=== PATIENT | male | born 1975 | race Caucasian/White ===

== ENCOUNTER 2017-02-14 02:02 | Inpatient (IN) ==
[2017-02-14] MEDS ORDERED: 0.9 % Sodium Chloride 1,000 ML IVC ONE (02:39)
[2017-02-14] MEDS ORDERED: Aspirin 81 MG TAB.CHEW PO ONE (02:43)
--- NOTE | 2017-02-14 03:01 | Emergency Department Note ---
Disposition Clinical Impression: Afib Qualifiers: Atrial fibrillation type: paroxysmal Qualified Code(s): I48.0 - Paroxysmal atrial fibrillation Chest pain Qualifiers: Chest pain type: unspecified Qualified Code(s): R07.9 - Chest pain, unspecified Disposition: Admitted As Inpatient Arrhythmia/Palpitations HPI - General Chief Complaint: ED Arrhythmia/Palpitations Stated Complaint: Afib Time Seen by Provider: 02/14/17 02:34 Source: patient Mode of arrival: ambulatory Limitations: no limitations Nursing Notes Reviewed: Yes Vital Signs Reviewed: Yes - History of Present Illness HPI Narrative: 41-year-old male with a history of A. fib presents for evaluation of chest pain and atrial fibrillation. States that he was diagnosed with A. fib in June of last year. Patient was cardioverted at [facility]. He states that his heart rate has fluctuated recently within the past 2 months but noted earlier today following exertion the patient did have lightheadedness, diaphoresis, nausea as well as chest pressure.It was retrosternal chest pressure without radiation. Lasted momentarily. Also noted an increased heart rate in the 111s. States that he is on beta blockers and took his beta john dose this morning and was scheduled one for tonight. Denies any shortness of breath. No abdominal pain. Denies having a formal cardiology evaluation. Denies history of diabetes or hypertension. Denies history of anticoagulation use. Denies history of heart attacks. - Related Data Home Medications Medication Instructions Recorded Confirmed Pregabalin [Lyrica] 150 mg PO DAILY 06/26/16 06/26/16 Previous Rx's Medication Instructions Recorded Aspirin Enteric Coated [Aspirin EC] 325 mg PO DAILY #30 tablet. 06/28/16 Diltiazem CD (24hr) [Cardizem CD] 120 mg PO DAILY #30 cap.er.24h 06/28/16 Metoprolol XL (24 HR) Succ [Toprol 50 mg PO BID #60 tab.er.24h 06/28/16 Xl] Allergies Allergy/AdvReac Type Severity Reaction Status Date / Time No Known Allergies Allergy Verified 03/16/15 14:29 All systems ED: reviewed and negative except as stated. Constitutional: Reports: as per HPI. Denies: fever Eyes: Reports: as per HPI ENT ED: Reports: as per HPI Cardiovascular: Reports: as per HPI, chest pain, palpitations. Denies: syncope Respiratory: Reports: as per HPI Gastrointestinal: Reports: as per HPI, nausea. Denies: abdominal pain, vomiting Genitourinary: Reports: as per HPI Musculoskeletal: Reports: as per HPI Integumentary: Reports: as per HPI Neurological: Reports: as per HPI Psychiatric: Reports: as per HPI Endocrine: Reports: as per HPI Hematological/Lymphatic: Reports: as per HPI Past Medical History - Past Medical History Medical history: Reports: arthritis, atrial fibrillation, GERD, hypertension Surgical history: Reports: orthopedic, other, other (tonsilectomy) Psychiatric history: Reports: no psych history - Social History Smoking Status: Never smoker Smokeless Tobacco Status: No Alcohol use: Reports: none Drug use: Reports: none Physical Exam - General Limitations: no limitations General appearance: alert, in no apparent distress - Head Head exam: atraumatic, normocephalic - Eye Eye exam: Present: normal appearance, EOMI - ENT ENT exam: normal exam, mucous membranes moist - Neck Neck exam: Present: normal inspection - Chest Chest inspection: Present: normal inspection - Respiratory Respiratory exam: Present: normal lung sounds bilaterally. Absent: respiratory distress - Cardiovascular Cardiovascular exam: Present: regular rate, irregular rhythm. Absent: systolic murmur - Abdominal Exam Abdominal exam: Present: soft, Non-Tender - Extremities Exam Extremities exam: Present: normal inspection. Absent: pedal edema - Back Exam Back exam: Present: normal inspection, full ROM. Absent: tenderness - Neurological Exam Neurological exam: Present: alert, oriented X3, CN II-XII intact - Skin Skin exam: Present: warm, dry, intact, normal color Course Course Narrative: Patient seen and examined. Patient has not had a cardiopulmonary evaluation. Patient did have chest pain earlier today. Describes it as chest pressure as well as diaphoresis and nausea and lightheadedness. Patient's heart rate appears to be moderately controlled with current medications. Given metoprolol this evening in the emergency department as well as IV fluid hydration. Patient will get a cardiopulmonary evaluation including troponin and electrolytes. Patient does not feel comfort with outpatient cardiac follow-up. He states that he feels like there something wrong. Disposition likely admission. Patient's chads Vas Score is 0. - Reevaluation(s) Reevaluation #1: Patient seen and examined. Patient's resting comfortably. Patient's lab work is unremarkable. Due to patient's concerns earlier today with this chest pressure as well as his A. fib patient the patient will be admitted for observation. Time: 03:46 Vital Signs Temperature 97.7 F 02/14/17 02:35 Pulse Rate 91 02/14/17 02:35 Respiratory Rate 18 02/14/17 02:35 Blood Pressure 155/88 02/14/17 02:35 O2 Sat by Pulse Oximetry 98 02/14/17 02:35 Temperature 97.7 F 02/14/17 02:35 Pulse Rate 91 02/14/17 02:35 Respiratory Rate 18 02/14/17 02:35 Blood Pressure 155/88 02/14/17 02:35 O2 Sat by Pulse Oximetry 98 02/14/17 02:35 Oxygen Delivery Oxygen Delivery Room Air Arrhythmia/Palpitations - MDM Narrative Medical decision making narrative: 41-year-old male process for evaluation of chest pain as well as A. fib irregular rhythm. States that he was diagnosed with A. fib back in May last year. Was cardioverted at [facility]. States that his heart rate is been somewhat irregular over the past couple months not entirely controlled on metoprolol. Since that earlier today he developed chest pain as a pressure sensation with diaphoresis lightheadedness and nausea. Denied any dyspnea. Notes that the symptoms. To improve however continued to note a regular heart rate. States he has been tracking his heart rate has not exceeded into the 120s. Patient had a cardiopulmonary evaluation with EKG, troponin and electrolytes. Patient's studies were reviewed and are unremarkable. Discussed the possibility of outpatient follow-up with discharge instructions, however the patient states that he does not feel comfortable going home stating that last time the symptoms occurred he was transferred to [facility]. Those records reviewed and shows the patient had a inpatient stay with new onset A. fib and cardiology consult. Patient had echo in May last year showed an EF of 55- 60%. Patient denies any risk factors for coronary heart disease. Patient has never had an ischemic workup for his ACS or A. fib. Less likely this is a PE. Patient has not had any pleuritic pain. Notes it was a chest pressure with concerning symptoms earlier today. Offered the patient discharge with close outpatient follow-up however the patient states that he does not feel comfortable going home and he says he feels like there is something wrong. - Lab Data Lab results reviewed: Yes I reviewed the patient's lab results. Result diagrams: 02/14/17 02:39 02/14/17 02:39 Lab Results 02/14/17 02/14/17 02/14/17 Range/Units 02:39 02:39 02:39 WBC 6.6 (4.3-11.1) K/mcL RBC 4.76 (4.19-5.50) M/mcL Hgb 13.3 (12.9-16.9) g/dL Hct 40.6 (37.5-50.1) % MCV 85.3 (83.0-100.0) fL MCH 27.9 L (28.0-33.3) pg MCHC 32.8 (31.6-35.5) g/dL RDW 13.0 (11.5-14.5) % Plt Count 198 (140-400) K/mcL MPV 11.0 (9.4-12.4) fL Immature Gran % 0.2 (0-4) % Seg Neutrophils % 59.0 % Lymphocytes % 31.6 % Monocytes % 7.3 % Eosinophils % 1.7 % Basophils % 0.2 % Neutrophils # 3.9 (1.6-8.9) K/mcL Lymphocytes # 2.1 (0.6-4.6) K/mcL Monocytes # 0.5 (0.0-1.3) K/mcL Eosinophils # 0.1 (0.0-0.6) K/mcL Basophils # 0.0 (0.0-0.2) K/mcL PT 11.8 (9.4-12.1) Seconds INR 1.1 Sodium 138 (136-145) mEq/L Potassium 4.0 (3.5-4.5) mEq/L Chloride 106 (98-109) mEq/L Carbon Dioxide 25 (19-29) mEq/L BUN 17 (8-26) mg/dL Creatinine 1.13 (0.72-1.25) mg/dL Est GFR ( Amer) > 60 (> 60) Est GFR (Non-Af Amer) > 60 (> 60) BUN/Creatinine Ratio 15 (6-26) Glucose 86 (70-99) mg/dL Calculated Osmolality 287 (280-300) Calcium 9.4 (8.6-10.8) mg/dL Magnesium 2.3 (1.6-2.6) mg/dL Troponin I (0-0.03) ng/mL 02/14/17 Range/Units 02:39 WBC (4.3-11.1) K/mcL RBC (4.19-5.50) M/mcL Hgb (12.9-16.9) g/dL Hct (37.5-50.1) % MCV (83.0-100.0) fL MCH (28.0-33.3) pg MCHC (31.6-35.5) g/dL RDW (11.5-14.5) % Plt Count (140-400) K/mcL MPV (9.4-12.4) fL Immature Gran % (0-4) % Seg Neutrophils % % Lymphocytes % % Monocytes % % Eosinophils % % Basophils % % Neutrophils # (1.6-8.9) K/mcL Lymphocytes # (0.6-4.6) K/mcL Monocytes # (0.0-1.3) K/mcL Eosinophils # (0.0-0.6) K/mcL Basophils # (0.0-0.2) K/mcL PT (9.4-12.1) Seconds INR Sodium (136-145) mEq/L Potassium (3.5-4.5) mEq/L Chloride (98-109) mEq/L Carbon Dioxide (19-29) mEq/L BUN (8-26) mg/dL Creatinine (0.72-1.25) mg/dL Est GFR ( Amer) (> 60) Est GFR (Non-Af Amer) (> 60) BUN/Creatinine Ratio (6-26) Glucose (70-99) mg/dL Calculated Osmolality (280-300) Calcium (8.6-10.8) mg/dL Magnesium (1.6-2.6) mg/dL Troponin I 0.01 (0-0.03) ng/mL - Radiology Data Radiology results reviewed: Yes I reviewed the patient's radiology results. Chest X-Ray 02/14/17 02:35 IMPRESSION: No acute abnormality D/ / Memo Souza MD / Memo Souza MD Interpreting Provider: Memo Souza MD - EKG Data EKG attestation: Yes I reviewed and interpreted this EKG. Rate: tachycardia Rhythm: A.Fib [place]/QRS: normal T wave inversions noted in: v1 Interpretation: no acute changes, unchanged when compared to prior tracing (date ) (2015) [place] Situation: Demographics Background: Presenting Complaint Assessment: Vital Signs, Course and respsone to treatment, Patient/Family Expectation Recommendation: Barrier(s) to disposition SEunice Report Given to: Dr. Evens Milian Repor Time: 03:54 Attestation Statement - Attestation Attestation: I, Jimy Ricks MD, personally evaluated this patient and discussed their management with the resident physician. I reviewed the resident's note and agree with the documented findings, medical decision making, and plan of care. 41-year-old male with history of paroxysmal atrial fibrillation presents to the emergency department with a complaint of onset of palpitations while at work about 1.5 hours prior to arrival. Patient also however complains of a lot of chest tightness and pressure and discomfort associated with the palpitations. He also became diaphoretic. He does not usually have these symptoms. No prior history of [place]. On examination patient is a well-developed well-nourished well-appearing male in no acute distress. He is alert and oriented 3. There is no cyanosis or diaphoresis. Chest is nontender to palpation. Breath sounds are clear and equal bilaterally. Heart is irregularly irregular with a very slight tachycardia. Abdomen is soft and nontender with normal bowel sounds. No pedal edema. EKG shows atrial fibrillation with RVR with a heart rate of 105. Otherwise no acute changes. Labs reviewed. Chest x-ray negative. The hospitalist, Dr. Horner, was consulted and accepted admission of the patient.
[2017-02-14 03:03] LABS: Basophils % 0.2 %; Eosinophils # 0.1 K/mcL (0.0-0.6); Eosinophils % 1.7 %; Hematocrit 40.6 % (37.5-50.1); Hemoglobin 13.3 g/dL (12.9-16.9); Immature Granulocytes % 0.2 % (0-4); Lymphocytes # 2.1 K/mcL (0.6-4.6); Lymphocytes % 31.6 %; Mean Corpuscular HGB Conc 32.8 g/dL (31.6-35.5); Mean Corpuscular Hemoglobin 27.9 pg (28.0-33.3); Mean Corpuscular Volume 85.3 fL (83.0-100.0); Monocytes # 0.5 K/mcL (0.0-1.3); Monocytes % 7.3 %; Neutrophils # 3.9 K/mcL (1.6-8.9); Platelet Count 198 K/mcL (140-400); Red Blood Count 4.76 M/mcL (4.19-5.50)
[2017-02-14 03:07] LABS: INR 1.1; Prothrombin Time 11.8 Seconds (9.4-12.1)
[2017-02-14 03:16] LABS: BUN/Creatinine Ratio 15 (6-26); Blood Urea Nitrogen 17 mg/dL (8-26); Calcium 9.4 mg/dL (8.6-10.8); Carbon Dioxide 25 mEq/L (19-29); Chloride 106 mEq/L (98-109); Glucose 86 mg/dL (70-99); Magnesium 2.3 mg/dL (1.6-2.6); Osmolality,Calculated 287 (280-300); Sodium 138 mEq/L (136-145); eGFR For African Americans > 60 (> 60); eGFR For Non-African Americans > 60 (> 60)
--- NOTE | 2017-02-14 04:35 | Internal Med History&Physical ---
<Asa Alba - Last Filed: 02/14/17 05:05> Date of Encounter: 02/14/17 Time of Encounter: 04:32 Assessment and Plan (1) Chronic a-fib Current visit: Yes Status: Chronic Patient currently in rate controlled AFib upon presentation, so willplace on telemetry and continue with home beta john dose and ASA If he does have sustained heart rates above 120 and has stable BP, will add PRN IV Metoprolol He had echo and exercise stress test performed in May when he was hospitalized with Afib RVR; results were normal so no need to repeat at this time (2) HTN (hypertension) Current visit: No Status: Chronic Blood pressures well controlled since admission Will continue home BB dose Qualifiers: Hypertension type: essential hypertension Qualified Code(s): I10 - Essential (primary) hypertension (3) DVT prophylaxis Current visit: Yes Status: Acute Heparin 5000 units BID Internal Medicine - H&P: HPI Chief complaint: Afib Admitted From: Home Plans for Post Hospital Care: Home History of present illness: Mr. Garcia is a 41 year old male who presents with palpitations and chest discomfort. Patient states the symptoms started around 1 AM while he was at work at [employer]. He states he was exerting himself during the time symptoms started. He was recently diagnosed with A. fib last May and required cardioversion and [facility] as he was unstable. He does have intermittent episodes of palpitations but states this episode is worse than usual as its more severe and persistent. He describes the chest discomfort as retrosternal and nonradiating. Also reports a headache on the left side that is new for him. He states that in May he had a stress test done which was negative and also had an echocardiogram which was also within normal limits. Currently denies any nausea, vomiting, shortness of breath, fevers, chills, diarrhea. Past Med Surg Social Fam HX - Past Medical History Medical history: arthritis, atrial fibrillation, GERD, hypertension Psychiatric history: no psych history - Past Surgical History Surgical History: orthopedic, other, other (tonsilectomy) - Social History Smoking Status: Never smoker Smokeless Tobacco Status: No Alcohol use: none Drug use: none - Family History Son Family Member Ethnicity: Non- Hx Family Cardiac Disorders: No Hx Family Respiratory Disorders: No Hx Family Cancer: No Hx Family GI Disorders: No Hx Family Endocrine Disorder: No Hx Family Neuromuscular Disorders: No Hx Family Neurologic Disorders: No Hx Family HEENT Disorders: No Hx Family Autoimmune Disorders: No Mother Family Member Ethnicity: Non- Living Status: Still Living Hx Family Cardiac Disorders: Yes (a -fib) Hx Family Respiratory Disorders: No Hx Family Cancer: Yes (skin) Hx Family GI Disorders: No Hx Family Endocrine Disorder: No Hx Family Neuromuscular Disorders: No Hx Family Neurologic Disorders: No Hx Family HEENT Disorders: No Hx Family Autoimmune Disorders: No Internal Medicine - H&P: Meds Pregabalin [Lyrica] 150 mg PO DAILY 06/26/16 [History] Aspirin Enteric Coated [Aspirin EC] 325 mg PO DAILY #30 tablet.dr 06/28/16 [Rx] Diltiazem CD (24hr) [Cardizem CD] 120 mg PO DAILY #30 cap.er.24h 06/28/16 [Rx] Metoprolol XL (24 HR) Succ [Toprol Xl] 50 mg PO BID #60 tab.er.24h 06/28/16 [Rx] Allergies No Known Allergies Allergy (Verified 03/16/15 14:29) All Systems PM: A 10-system review of systems was performed and is negative for pertinent findings except as documented above in the HPI. - Constitutional Constitutional: no chills, no fever(s), no night sweats - EENT Eyes: no change in vision, no discharge, no pain, no photophobia Ears: no ear discharge, no ear pain, no tinnitus Nose, mouth and throat: no dysphagia, no nasal discharge, no neck pain, no sore throat - Cardiovascular Cardiovascular ROS IM: chest pain, irregular heart rhythm, palpitations, no diaphoresis, no dyspnea, no lightheadedness, no syncope - Respiratory Respiratory: no cough, no dyspnea, no wheezing, no excessive phlegm production - Gastrointestinal Gastrointestinal: no abdominal pain, no diarrhea, no hematemesis, no hematochezia, no melena, no nausea, no vomiting - Musculoskeletal Musculoskeletal ROS IM: no numbness, no tingling - Integumentary Integumentary IM: no rash, no unusual bruising - Neurological Neurological ROS: headache(s), no confusion, no convulsions, no focal weakness, no numbness, no tingling, no tremor(s) - Hematologic/Lymphatic Hematologic/Lymphatic: no easy bruising - Constitutional Vitals: Temp Pulse Resp BP Pulse Ox 97.7 F 91 18 155/88 98 02/14/17 02:35 02/14/17 02:35 02/14/17 02:35 02/14/17 02:35 02/14/17 02:35 General appearance: Present: cooperative, pleasant, no acute distress, answers questions appropriately - Head Head exam: Present: atraumatic, normocephalic - Eye Eye exam: Present: PERRL, conjuntiva pink, sclera anicteric - Neck Neck exam general surgery: Present: supple, trachea midline. Absent: lymphadenopathy - Respiratory Respiratory exam: Present: CTAB. Absent: accessory muscle use, rales, rhonchi, wheezes - Cardiovascular Cardiovascular exam: Present: irregular rhythm (non-tachycardic), +S1, +S2. Absent: diastolic murmur, gallop, rubs, systolic murmur - GI/Abdominal GI/Abdominal exam: Present: normal bowel sounds, soft, no peritoneal signs. Absent: distended, tenderness - Extremities Exam Extremities exam: Present: warm, radial pulses palpable and symetrical. Absent : calf tenderness, cyanotic, pedal edema - Neurological Exam Neurological exam: Present: alert, no focal deficits. Absent: facial droop, speech deficit - Skin Skin exam: Present: dry, intact Internal Med - H&P Results - Labs CBC & Chem 7: 02/14/17 02:39 02/14/17 02:39 <Wilfred Munoz - Last Filed: 02/14/17 05:51> Date of Encounter: 02/14/17 Internal Medicine - H&P: HPI History of present illness: Mr. Garcia is a 41 year old male All Systems PM: A 10-system review of systems was performed and is negative for pertinent findings except as documented above in the HPI. - Constitutional Vitals: Temp Pulse Resp BP Pulse Ox 97.5 F L 76 16 128/74 94 02/14/17 05:10 02/14/17 05:10 02/14/17 05:10 02/14/17 05:10 02/14/17 05:10 Internal Med - H&P Results - Labs CBC & Chem 7: 02/14/17 02:39 02/14/17 02:39 - Attending Attestation I have seen and examined the patient. I have discussed about the patient with Dr. Alba. I have reviewed the orders and the note. Patient is a 41-year-old male with a past history of hypertension and chronic atrial fibrillation. Patient presents to the ED with complaints of shortness of breath and palpitations. Patient was at work when his symptoms started. He states he is experienced similar symptoms in the past when he was initially diagnosed with atrial fibrillation. Patient did have a stress test and echocardiogram done in May 2016 which were both within normal limits. Patient went to [facility] soon afterward for atrial fibrillation. He required cardioversion and was also placed on Eliquis for two months. The only medication patient now takes is metoprolol. Patient denies chest pain. No other complaints. Initial workup in the ED is negative. EKG reveals atrial fibrillation. Rate is now controlled after giving metoprolol by mouth. Patient was placed in observation in view of atrial fibrillation with RVR. We will trend troponins. Patient has been explained about his condition and plan of care. Understood and agreed. No unanswered questions. CODE STATUS full code.
[2017-02-14] MEDS ORDERED: Naloxone 0.4 MG/ML INJ IVP PRN (04:46)
[2017-02-14] MEDS ORDERED: Acetaminophen 325 MG TABLET PO PRN (04:46)
[2017-02-14] MEDS ORDERED: Ondansetron ODT 4 MG TAB.RAPDIS SL PRN (04:46)
[2017-02-14] MEDS ORDERED: *HR* Metoprolol 5 MG/5 ML VIAL IVP PRN (05:04)
[2017-02-14] MEDS: *HR* Heparin 5,000 UNIT/ML VIAL SQ SCH ×2 (05:10→18:09)
[2017-02-14] MEDS ORDERED: Aspirin 81 MG TAB.CHEW PO SCH (09:00)
[2017-02-14] MEDS ORDERED: Pregabalin 75 MG CAPSULE PO SCH (09:00)
[2017-02-14] MEDS: Metoprolol XL (24 HR) Succ 50 MG TAB.ER.24H PO SCH ×2 (09:02→20:37)
--- NOTE | 2017-02-14 12:23 | Cardiology Consult Note ---
Date of Encounter: 02/14/17 Time of Encounter: 12:19 Assessment and Plan (1) Atrial fibrillation with RVR Current Visit: No Status: Acute Presented with mild atrial fibrillation with RVR. H/O PAF. Patient appears to be very symptomatic with his afib. I discussed DYLON with DCCV verses antiarrythmic therapy. Discussed with Dr. Espino. Plan for DYLON/DCCV tomorrow and starting antiarrhythmic therapy afterwards. Stress test 05/2017 at [facility] negative. TTE 05/2017- EF 55%, RV appears mildly dilated with normal function. No significant valvular disease. Telemetry review shows avg HR 90 bpm. Occasional 2.3 second pauses noted. Not significant in the setting of afib. Continue toprol and cardizem with plan for flecainide therapy after DYLON/ DCCV. NPO after midnight. Will require anticoagulation therapy with DCCV and antiarrhythmic. Patient previously on eliquis and is agreeable to continue. Discussion w patient/family: The assessment and plan as outlined above was discussed with the patient and/or family members who expressed understanding and agreement. All questions were answered. Thank you for involving us in the care of your patient. Please call with any questions. History of Present Illness Consult date: 02/14/17 Requesting physician: Graciela Rivas Consult reason: Atrial fibrillation Chief complaint: Chest discomfort History of present illness: Mr. Garcia is a 41 year old male with a history of HTN , PAF s/p cardioversion last May, and narcolepsy who presented with sudden onset of chest discomfort starting at 2:30 am while working. He describes his discomfort as feeling like someone punching him in the chest. 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 He also admits to palpitations and dizziness with position change. He was sent directly to [facility] ED and was found to be in atrial fibrillation with mild RVR. He denies recurrent problems since cardioversion in May. His pulse always runs in the 60's. His symptoms are the same as what he felt last year when he was found to have afib. He underwent stress test last May that was normal. Past Med Surg Social Fam HX - Past Medical History Medical history: arthritis, atrial fibrillation, GERD, hypertension Psychiatric history: no psych history - Past Surgical History Surgical History: orthopedic, other, other - Social History Smoking Status: Former smoker Smokeless Tobacco Status: No Alcohol use: none Drug use: none - Family History Son Family Member Ethnicity: Non- Hx Family Cardiac Disorders: No Hx Family Respiratory Disorders: No Hx Family Cancer: No Hx Family GI Disorders: No Hx Family Endocrine Disorder: No Hx Family Neuromuscular Disorders: No Hx Family Neurologic Disorders: No Hx Family HEENT Disorders: No Hx Family Autoimmune Disorders: No Mother Family Member Ethnicity: Non- Living Status: Still Living Hx Family Cardiac Disorders: Yes (a -fib) Hx Family Respiratory Disorders: No Hx Family Cancer: Yes (skin) Hx Family GI Disorders: No Hx Family Endocrine Disorder: No Hx Family Neuromuscular Disorders: No Hx Family Neurologic Disorders: No Hx Family HEENT Disorders: No Hx Family Autoimmune Disorders: No Medications and Allergies Aspirin Enteric Coated [Aspirin EC] 325 mg PO DAILY #30 tablet.dr 06/28/16 [Rx] Metoprolol XL (24 HR) Succ [Toprol Xl] 50 mg PO BID #60 tab.er.24h 06/28/16 [Rx] Tadalafil [Cialis] 5 mg PO DAILY PRN 02/14/17 [History] Allergies No Known Allergies Allergy (Verified 03/16/15 14:29) All Systems Review: A 10-system review of systems was performed and is negative for pertinent findings except as documented above in the HPI. Physical Examination General: Conversant, No Apparent Distress HEENT: Atraumatic, Normocephaly, Mucus Membranes Moist Neck: No JVD, Normal carotid pulses Cardiac: Other (Irregularly irregular. ) Lungs: Normal Breath Sounds, No Wheeze, Rales, Rhonchi Neuro: Alert and responsive, No focal deficits noted Abdomen: Soft, Non-Tender Skin: No rashes noted on visualized skin Musculoskeletal: No Chest Wall Tenderness Extremities: No Clubbing, No Cyanosis, No Edema, Normal Pulses Results 02/14/17 02:39 02/14/17 02:39 Lab Results 02/14/17 08:14 Troponin I 0.00 - Imaging and Cardiology Echo: report reviewed - EKG Interpretation EKG results cardiology: personally reviewed (atrial fibrillation HR 107) Consult Discharge Plan - Plan Referrals: Arron Yoon Jr, MD [Primary Care Provider] -
--- NOTE | 2017-02-14 14:15 | Event Note ---
Date of Encounter: 02/14/17 Time of Encounter: 11:50 Patient is a 41y/o male with PMH of Afib, HTN who was admitted for management of Afib with RVR. He was initially rate controlled with BB however continues to have fluctuations with rate varying into low 100s. Patient seen and examined with family present at bedside. reports of having palpitations and history of cardioversion in the past. During my evaluation, patient's HR was noted to range between 95-108 in Afib with RVR. Cardiology consultation was requested and echocardiogram was obtained Cardizem 120mg PO qdaily has been added to the regimen for better BP control. cardiology evaluation appreciated. Pt to undergo DYLON in am will keep NPO after midnight closely monitor HR pt will require skilled nursing anticoagulation.
[2017-02-14] MEDS: APIXABAN 5 MG TABLET PO SCH (20:36)
[2017-02-15] MEDS: *HR* Heparin 5,000 UNIT/ML VIAL SQ SCH (06:01)
[2017-02-15 07:00] LABS: BUN/Creatinine Ratio 12 (6-26); Blood Urea Nitrogen 11 mg/dL (8-26); Calcium 8.7 mg/dL (8.6-10.8); Carbon Dioxide 25 mEq/L (19-29); Chloride 110 mEq/L (98-109); Glucose 107 mg/dL (70-99); Osmolality,Calculated 290 (280-300); Phosphorous 3.6 mg/dL (2.3-4.7); Potassium 4.1 mEq/L (3.5-4.5); Sodium 140 mEq/L (136-145); eGFR For African Americans > 60 (> 60); eGFR For Non-African Americans > 60 (> 60)
[2017-02-15 07:05] LABS: Basophils % 0.2 %; Eosinophils # 0.1 K/mcL (0.0-0.6); Eosinophils % 1.3 %; Hematocrit 43.7 % (37.5-50.1); Hemoglobin 13.9 g/dL (12.9-16.9); Lymphocytes # 1.5 K/mcL (0.6-4.6); Lymphocytes % 24.5 %; Mean Corpuscular HGB Conc 31.8 g/dL (31.6-35.5); Mean Corpuscular Hemoglobin 27.6 pg (28.0-33.3); Mean Corpuscular Volume 86.9 fL (83.0-100.0); Mean Platelet Volume 11.3 fL (9.4-12.4); Monocytes # 0.4 K/mcL (0.0-1.3); Monocytes % 6.9 %; Neutrophils # 4.2 K/mcL (1.6-8.9); Platelet Count 195 K/mcL (140-400); Red Blood Count 5.03 M/mcL (4.19-5.50); Red Cell Distribution Width 13.2 % (11.5-14.5); Segmented Neutrophils % 67.1 %
--- NOTE | 2017-02-15 08:55 | Internal Med Progress Note ---
Date of Encounter: 02/15/17 Time of Encounter: 08:51 - Assessment and plan (1) Atrial fibrillation with RVR Current Visit: No Status: Acute Assessment and plan: Recurrent symptomatic Afib with RVR Cardiology input appreciated scheduled for DYLON today (02/15/17) with initiation of Flecanide after anticoagulation started with Eliquis continue BB and Cardizem tele monitoring will monitor overnight after DYLON and likely d/c in am if cleared by cardiology (2) HTN (hypertension) Current Visit: No Status: Chronic Assessment and plan: BP within acceptable range will continue to monitor Qualifiers: Hypertension type: essential hypertension Qualified Code(s): I10 - Essential (primary) hypertension (3) DVT prophylaxis Current Visit: Yes Status: Acute Assessment and plan: anticoagulated with Eliquis - Subjective Interval history: Patient seen and examined at bedside. Resting in bed and reports of feeling better compared to previous day. Denies any chest pain, palpitations, sob at this time. No overnight issues reported. Scheduled for DYLON today (02/15/17). - Constitutional Vitals: Temp Pulse Resp BP Pulse Ox 98.3 F 94 18 108/73 98 02/15/17 07:30 02/15/17 07:30 02/15/17 07:30 02/15/17 07:30 02/15/17 07:30 General appearance: Present: cooperative, A&O X 3, pleasant, no acute distress, obese, answers questions appropriately - Head Head exam: Present: atraumatic, normocephalic - Eye Eye exam: Present: normal appearance, conjuntiva pink, sclera anicteric - Respiratory Respiratory exam: Present: CTAB. Absent: accessory muscle use, rales, rhonchi, wheezes - Cardiovascular Cardiovascular exam: Present: irregular rhythm, +S1, +S2. Absent: diastolic murmur, gallop, rubs, systolic murmur - GI/Abdominal GI/Abdominal exam: Present: normal bowel sounds, soft, no peritoneal signs. Absent: distended, tenderness - Extremities Exam Extremities exam: Present: warm, radial pulses palpable and symetrical. Absent : calf tenderness, cyanotic, pedal edema - Neurological Exam Neurological exam: Present: alert, oriented X3 - Psychiatric Psychiatric exam: Present: normal affect, normal mood Internal Medicine: Result - Labs CBC & Chem 7: 02/15/17 06:06 02/15/17 06:06 Labs: Short CBC 02/15/17 Range/Units 06:06 WBC 6.2 (4.3-11.1) K/mcL Hgb 13.9 (12.9-16.9) g/dL Hct 43.7 (37.5-50.1) % Plt Count 195 (140-400) K/mcL Neutrophils # 4.2 (1.6-8.9) K/mcL BMP 02/15/17 06:06 Sodium 140 Potassium 4.1 Chloride 110 H Carbon Dioxide 25 BUN 11 Creatinine 0.91 Glucose 107 H Calcium 8.7 Cardiac Enzymes 02/14/17 02/14/17 Range/Units 08:14 14:37 Troponin I 0.00 0.00 (0-0.03) ng/mL - ABG Interpretation ABG results: PT/INR, D-dimer PT 11.8 Seconds (9.4-12.1) 02/14/17 02:39 Consult Discharge Plan - Plan Referrals: Arron Yoon Jr, MD [Primary Care Provider] -
[2017-02-15] MEDS ORDERED: Diltiazem CD (24hr) 120 MG CAPSULE PO SCH (09:00)
[2017-02-15] MEDS ORDERED: 0.9 % Sodium Chloride 500 ML IVC ONE ×3 (09:26→10:58)
[2017-02-15] MEDS ORDERED: Tetracaine/Benzocaine/Butamben 200MG/SPRAY (100SPY/BOT) MM ONE (09:27)
[2017-02-15] MEDS: APIXABAN 5 MG TABLET PO SCH ×2 (09:59→21:11)
[2017-02-15] MEDS: *HR* Midazolam HCl 5 MG/5 ML VIAL IVP PRN ×3 (10:15→10:44)
[2017-02-15] MEDS: *HR* FentaNYL (PF) 100 MCG/2 ML VIAL IVP PRN ×3 (10:20→10:44)
--- NOTE | 2017-02-15 11:51 | Event Note ---
Date of Encounter: 02/15/17 Time of Encounter: 11:00 - Cardiology Event Note s/p successful DYLON guided DCCV to NSR--see full report for details. ECG after CV: SR 66 QRS 104 QT/QTc 376,389 ms Will start Flecainide 50 mg Q12H, first dose now. Patient will require inpatient monitoring for at least 5 doses. ECG every AM. Continue Eliquis 5 mg BID--first dose on 02/14/17. Discussed and reviewed with Dr. Espino who agrees with plan. Will continue to follow.
--- NOTE | 2017-02-15 11:57 | Electrocardiograph Report ---
[place] [address] Test Date: 2017-02-14 Pat Name: Kuldeep Garcia Department: 102 Room: 2NE29 Gender: M Business Process Lead: Rafael : 1975 Requested By: Luiz Collins Order Number: [id number] Reading MD: Luis Enrique Britt MD Measurements Intervals [place] Rate: 105 P: TN: 0 QRS: -16 QRSD: 96 T: 3 QT: 323 QTc: 384 Interpretive Statements ATRIAL FIBRILLATION WITH RAPID VENTRICULAR RESPONSE Electronically Signed On 02-15-2017 11:55:36 EDT by Luis Enrique Britt MD
[2017-02-15] MEDS: Metoprolol XL (24 HR) Succ 50 MG TAB.ER.24H PO SCH ×2 (12:31→21:11)
--- NOTE | 2017-02-15 15:46 | Electrocardiograph Report ---
[place] [address] Test Date: 2017-02-15 Pat Name: Kuldeep Garcia Department: 111 Room: 2NE29 Gender: M Dehairer: PRISCILLA : 1975 Requested By: Graciela Rivas Order Number: [id number] Reading MD: Luis Enrique Britt MD Measurements Intervals [place] Rate: 84 P: IN: 0 QRS: -13 QRSD: 108 T: 1 QT: 339 QTc: 380 Interpretive Statements ATRIAL FIBRILLATION Electronically Signed On 02-15-2017 15:44:49 EDT by Luis Enrique Britt MD
--- NOTE | 2017-02-15 15:53 | Electrocardiograph Report ---
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
[2017-02-16 06:16] LABS: Basophils % 0.3 %; Eosinophils # 0.1 K/mcL (0.0-0.6); Eosinophils % 1.8 %; Hematocrit 39.6 % (37.5-50.1); Hemoglobin 12.8 g/dL (12.9-16.9); Immature Granulocytes % 0.3 % (0-4); Lymphocytes # 1.7 K/mcL (0.6-4.6); Lymphocytes % 23.6 %; Mean Corpuscular HGB Conc 32.3 g/dL (31.6-35.5); Mean Corpuscular Hemoglobin 28.5 pg (28.0-33.3); Mean Corpuscular Volume 88.2 fL (83.0-100.0); Mean Platelet Volume 11.3 fL (9.4-12.4); Monocytes # 0.5 K/mcL (0.0-1.3); Monocytes % 6.7 %; Neutrophils # 4.9 K/mcL (1.6-8.9); Platelet Count 180 K/mcL (140-400); Red Blood Count 4.49 M/mcL (4.19-5.50); Red Cell Distribution Width 13.2 % (11.5-14.5); Segmented Neutrophils % 67.3 %
[2017-02-16 06:18] LABS: BUN/Creatinine Ratio 11 (6-26); Blood Urea Nitrogen 11 mg/dL (8-26); Calcium 8.7 mg/dL (8.6-10.8); Carbon Dioxide 26 mEq/L (19-29); Chloride 108 mEq/L (98-109); Glucose 96 mg/dL (70-99); Magnesium 1.8 mg/dL (1.6-2.6); Osmolality,Calculated 289 (280-300); Sodium 140 mEq/L (136-145); eGFR For African Americans > 60 (> 60); eGFR For Non-African Americans > 60 (> 60)
--- NOTE | 2017-02-16 08:57 | Cardiology Progress Note ---
Date of Encounter: 02/16/17 Time of Encounter: 08:30 Assessment and Plan (1) Atrial fibrillation Current Visit: Yes Status: Acute Successful DYLON guided DCCV on 02/15/17--started on Flecainide. s/p 2 doses of Flecainide (02/15/17 at 12:30 PM and 02/16/17 at 12A). ECG this AM 02/16/17: SR 82 QRS 111 ms QT/QTC 376, 389ms Kidney function and electrolytes stable. 12 hour tele: avg HR=80 SR. No PAF noted. Will require inpatient monitoring for at least 5 doses--fifth dose due on at 12 noon. May d/c home after 5th dose. Continue Toprol XL 50 m BID. Check ECG every AM. Continue eliquis for anticoagulation, Eliquis 5 mg BID started on 02/14/17. Follow-up in the EP clinic in 2-3 weeks after discharge. Recommend outpatient sleep study. Qualifiers: Atrial fibrillation type: paroxysmal Qualified Code(s): I48.0 - Paroxysmal atrial fibrillation Discussion w patient/family: The assessment and plan as outlined above was discussed with the patient and/or family members who expressed understanding and agreement. All questions were answered. Thank you for involving us in the care of your patient. Please call with any questions. The patient will be discussed and reviewed with Dr. Espino; changes to be made accordingly. Subjective Principal diagnosis: Afib Interval history: Seen and examined. s/p DYLON guided DCCV on 02/15/17. No complaints upon exam this AM. Objective General: Conversant, No Apparent Distress HEENT: Atraumatic, Normocephaly, Mucus Membranes Moist Cardiac: Reg Rate and Rhythm, Normal S1 and S2 Lungs: Normal Breath Sounds Neuro: Alert and responsive Abdomen: Soft Skin: No rashes noted on visualized skin Musculoskeletal: No Chest Wall Tenderness Extremities: No Edema, Normal Pulses Results 02/16/17 05:25 02/16/17 05:25 - Imaging and Cardiology Echo: report reviewed - EKG Interpretation EKG results cardiology: personally reviewed Consult Discharge Plan - Plan Referrals: Arron Yoon Jr, MD [Primary Care Provider] - 02/21/17 11:30 am
[2017-02-16] MEDS: APIXABAN 5 MG TABLET PO SCH ×2 (09:14→21:17)
[2017-02-16] MEDS: Metoprolol XL (24 HR) Succ 50 MG TAB.ER.24H PO SCH ×2 (09:15→21:17)
--- NOTE | 2017-02-16 10:31 | Internal Med Progress Note ---
Date of Encounter: 02/16/17 Time of Encounter: 10:28 - Assessment and plan (1) Atrial fibrillation with RVR Current Visit: No Status: Acute Assessment and plan: Recurrent symptomatic Afib with RVR Cardiology input appreciated s/p DYLON (02/15/17) started Flecainide, need to monitor for 5 doses as per cardiology. If remains stably will be discharged tomorrow afternoon anticoagulation with Eliquis continue BB and Cardizem tele monitoring (2) HTN (hypertension) Current Visit: No Status: Chronic Assessment and plan: BP within acceptable range will continue to monitor Qualifiers: Hypertension type: essential hypertension Qualified Code(s): I10 - Essential (primary) hypertension (3) DVT prophylaxis Current Visit: Yes Status: Acute Assessment and plan: anticoagulated with Eliquis early ambulation - Subjective Interval history: Patient seen and examined at bedside. Resting in bed. Denies any complains at this time. No overnight issues reported. S/p DYLON. - Constitutional Vitals: Temp Pulse Resp BP Pulse Ox 97.7 F 83 18 101/60 97 02/16/17 07:00 02/16/17 07:00 02/16/17 07:00 02/16/17 07:00 02/16/17 07:00 General appearance: Present: cooperative, A&O X 3, pleasant, no acute distress, obese, answers questions appropriately - Head Head exam: Present: atraumatic, normocephalic - Eye Eye exam: Present: conjuntiva pink, sclera anicteric - Respiratory Respiratory exam: Present: CTAB. Absent: accessory muscle use, rales, rhonchi, wheezes - Cardiovascular Cardiovascular exam: Present: RRR, +S1, +S2. Absent: diastolic murmur, gallop, rubs, systolic murmur - GI/Abdominal GI/Abdominal exam: Present: normal bowel sounds, soft, no peritoneal signs. Absent: distended, tenderness - Extremities Exam Extremities exam: Present: warm, radial pulses palpable and symetrical. Absent : calf tenderness, cyanotic, pedal edema - Neurological Exam Neurological exam: Present: alert, oriented X3 - Psychiatric Psychiatric exam: Present: normal affect, normal mood Internal Medicine: Result - Labs CBC & Chem 7: 02/16/17 05:25 02/16/17 05:25 - ABG Interpretation ABG results: PT/INR, D-dimer PT 11.8 Seconds (9.4-12.1) 02/14/17 02:39 Consult Discharge Plan - Plan Referrals: Arron Yoon Jr, MD [Primary Care Provider] - 02/21/17 11:30 am Prescriptions: Apixaban [Eliquis] 5 mg PO BID #60 tablet
--- NOTE | 2017-02-16 12:28 | Electrocardiograph Report ---
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
[2017-02-17 05:28] LABS: Basophils % 0.4 %; Eosinophils # 0.1 K/mcL (0.0-0.6); Eosinophils % 1.3 %; Hemoglobin 13.2 g/dL (12.9-16.9); Immature Granulocytes % 0.1 % (0-4); Lymphocytes # 1.7 K/mcL (0.6-4.6); Mean Corpuscular HGB Conc 32.2 g/dL (31.6-35.5); Mean Corpuscular Volume 86.9 fL (83.0-100.0); Mean Platelet Volume 10.5 fL (9.4-12.4); Monocytes # 0.5 K/mcL (0.0-1.3); Neutrophils # 5.5 K/mcL (1.6-8.9); Platelet Count 186 K/mcL (140-400); Red Blood Count 4.72 M/mcL (4.19-5.50); Red Cell Distribution Width 12.9 % (11.5-14.5); Segmented Neutrophils % 70.2 %
[2017-02-17 05:39] LABS: BUN/Creatinine Ratio 12 (6-26); Blood Urea Nitrogen 11 mg/dL (8-26); Calcium 8.9 mg/dL (8.6-10.8); Carbon Dioxide 26 mEq/L (19-29); Chloride 106 mEq/L (98-109); Glucose 101 mg/dL (70-99); Magnesium 1.7 mg/dL (1.6-2.6); Osmolality,Calculated 286 (280-300); Phosphorous 4.3 mg/dL (2.3-4.7); Sodium 138 mEq/L (136-145); eGFR For African Americans > 60 (> 60); eGFR For Non-African Americans > 60 (> 60)
[2017-02-17 07:35] VITALS: BP 119/70
[2017-02-17] MEDS: APIXABAN 5 MG TABLET PO SCH (10:11)
[2017-02-17] MEDS: Metoprolol XL (24 HR) Succ 50 MG TAB.ER.24H PO SCH (10:11)
--- NOTE | 2017-02-17 11:19 | Discharge Summary ---
Date of Encounter: 02/17/17 Time of Encounter: 11:17 - Discharge Diagnosis (1) Atrial fibrillation with RVR Priority: Primary Status: Acute (2) HTN (hypertension) Priority: Secondary Status: Chronic Qualifiers: Hypertension type: essential hypertension Qualified Code(s): I10 - Essential (primary) hypertension (3) DVT prophylaxis Priority: Secondary Status: Acute - Discharge Medications Prescriptions: Apixaban [Eliquis] 5 mg PO BID #60 tablet Flecainide 50 mg PO Q12H #60 tab Home Medications: Aspirin Enteric Coated [Aspirin EC] 325 mg PO DAILY #30 tablet.dr 06/28/16 [Rx] Metoprolol XL (24 HR) Succ [Toprol Xl] 50 mg PO BID #60 tab.er.24h 06/28/16 [Rx] Tadalafil [Cialis] 5 mg PO DAILY PRN 02/14/17 [History] Apixaban [Eliquis] 5 mg PO BID #60 tablet 02/16/17 [Rx] Flecainide 50 mg PO Q12H #60 tab 02/17/17 [Rx] Allergies/Adverse Reactions: Allergies No Known Allergies Allergy (Verified 03/16/15 14:29) Date of admission: 02/16/17 07:57 Primary care physician: Arron Yoon Jr, MD Consults: Cardiology: Dr. 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 Eliquis and Flecainide have been added to your home medications, please take these medications as prescribed. Please resume all your home medications as prescribed by your primary care physician. - Diet and Activity Activity: resume usual activities as tolerated Diet: low salt diet Hospital course: Mr. Garcia is a 41 year old male with PMH of HTN, PAF s/p cardioversion who was admitted for Afib with RVR. He was followed by cardiology and underwent DYLON with DCCV. Patient tolerated the procedure well with conversion to NSR. He was started on Flecainide and Eliquis. Patient was monitored in the hospital for 5 doses of Flecainide. He is hemodynamically stable and as per cardio he can be discharged after receiving the fifth Flecainide dose. Patient demonstrates understanding of his diagnosis and agrees with the discharge care and plan. - Time Spent with Patient Total time spent providing and/or coordinating discharge services: Less than 30 minutes - Constitutional Vitals: Temp Pulse Resp BP Pulse Ox 97.7 F 97 17 119/70 99 02/17/17 07:33 02/17/17 07:33 02/17/17 07:33 02/17/17 07:33 02/17/17 07:33 General appearance: Present: cooperative, A&O X 3, pleasant, no acute distress, obese, answers questions appropriately - Head Head exam: Present: atraumatic, normocephalic - Eye Eye exam: Present: conjuntiva pink, sclera anicteric - Respiratory Respiratory exam: Present: CTAB. Absent: accessory muscle use, rales, rhonchi, wheezes - Cardiovascular Cardiovascular exam: Present: RRR, +S1, +S2. Absent: diastolic murmur, systolic murmur - GI/Abdominal GI/Abdominal exam: Present: normal bowel sounds, soft, no peritoneal signs. Absent: distended, tenderness - Extremities Exam Extremities exam: Present: warm, radial pulses palpable and symetrical. Absent : calf tenderness, cyanotic, pedal edema - Neurological Exam Neurological exam: Present: alert, oriented X3 - Psychiatric Psychiatric exam: Present: normal affect, normal mood
--- NOTE | 2017-02-17 15:28 | Event Note ---
Date of Encounter: 02/17/17 Time of Encounter: 15:26 - Cardiology Event Note Patient was discharged prior to seeing today. ECG was ordered for an hour after 5th dose of flecanide, was not completed. Telemetry reviewed with Sinus rhythm. All intervals appeared appropriate. Follow has been set up for patient to see Dr.John Gallagher
== END 2017-02-17 14:05 | disposition home or self-care (01) | DRG 310 ==
LOC: EMEROO 02:02 → 2NENU 02:02
PROVIDERS: ADMIT Internal Medicine; ATTEND Internal Medicine

== ENCOUNTER 2017-10-06 02:09 | Observation (INO) ==
[2017-10-06 02:53] LABS: Basophils % 0.5 %; Eosinophils % 2.1 %; Hematocrit 32.5 % (37.5-50.1); Hemoglobin 9.6 g/dL (12.9-16.9); Immature Granulocytes % 0.2 % (0-4); Lymphocytes % 21.7 %; Mean Corpuscular HGB Conc 29.5 g/dL (31.6-35.5); Mean Corpuscular Hemoglobin 24.4 pg (28.0-33.3); Mean Corpuscular Volume 82.5 fL (83.0-100.0); Mean Platelet Volume 10.2 fL (9.4-12.4); Monocytes % 7.5 %; Platelet Count 279 K/mcL (140-400); Red Blood Count 3.94 M/mcL (4.19-5.50); Red Cell Distribution Width 21.1 % (11.5-14.5)
[2017-10-06 02:54] LABS: Eosinophils # 0.1 K/mcL (0.0-0.6); Lymphocytes # 1.4 K/mcL (0.6-4.6); Monocytes # 0.5 K/mcL (0.0-1.3); Neutrophils # 4.3 K/mcL (1.6-8.9)
[2017-10-06 03:15] LABS: BUN/Creatinine Ratio 11 (6-26); Blood Urea Nitrogen 11 mg/dL (6-20); Calcium 8.8 mg/dL (8.6-10.3); Carbon Dioxide 23 mEq/L (23-29); Chloride 108 mEq/L (98-107); Glucose 120 mg/dL (70-105); Osmolality,Calculated 289 (280-300); Potassium 3.8 mEq/L (3.5-5.1); Sodium 139 mEq/L (136-145); Troponin I < 0.03 ng/mL (< 0.04); eGFR For African Americans > 60 (> 60); eGFR For Non-African Americans > 60 (> 60)
[2017-10-06] MEDS ORDERED: Furosemide 40 MG/4 ML VIAL IVP ONE (03:45)
[2017-10-06] MEDS ORDERED: methylPREDNISolone 125 MG/2 ML VIAL IVP ONE (03:49)
--- NOTE | 2017-10-06 03:59 | Emergency Department Note ---
Disposition Clinical Impression: Swelling, Rash Lower extremity pain Qualifiers: Laterality: bilateral Qualified Code(s): M79.604 - Pain in right leg Disposition: Admitted As Inpatient Condition: Good Time of Disposition: 04:38 General Adult HPI - General Chief complaint: ED Extremity Problem,Nontraumatic Stated complaint: BLE swelling Time Seen by Provider: 10/06/17 02:13 Source: patient, EMS Mode of arrival: EMS Limitations: no limitations Nursing Notes Reviewed: Yes Vital Signs Reviewed: Yes - History of Present Illness HPI Narrative: 41-year-old male with significant past medical history of atrial fibrillation and chronic anemia presented to the emergency Department chief complaint of chest pain and diffuse fluid retention. Patient states he was recently changed from metoprolol Cardizem any started taking this medication on Sunday. Patient states today while he was at work he started noticed bilateral lower extremity swelling and pain and it started radiating up his legs and he got chest pain as well. Patient denies chest pain at this time. He has severe tenderness of bilateral lower extremities. Denies shortness of breath, difficulty breathing. Pain Scale: 4 - Related Data Home Medications Medication Instructions Recorded Confirmed Tadalafil [Cialis] 5 mg PO DAILY PRN 02/14/17 09/22/17 Flecainide 100 mg PO Q12H 09/22/17 09/22/17 Previous Rx's Medication Instructions Recorded Metoprolol XL (24 HR) Succ [Toprol 50 mg PO BID #60 tab.er.24h 06/28/16 Xl] GuaiFENesin ER [Mucinex] 1,200 mg PO BID #20 tbbp.12hr 09/21/17 Meclizine HCl [Verticalm] 25 mg PO TID PRN #20 tablet 09/21/17 Promethazine [Phenergan] 25 mg PO Q6HR PRN #10 tablet 09/21/17 Ferrous Sulfate 325 mg PO BID #60 tablet 09/24/17 Allergies Allergy/AdvReac Type Severity Reaction Status Date / Time No Known Allergies Allergy Verified 04/20/17 18:14 All systems ED: reviewed and negative except as stated. Cardiovascular: Reports: chest pain Musculoskeletal: Reports: arthralgia Integumentary: Reports: rash Past Medical History - Past Medical History Attestation: Yes The following information was validated with the patient. Medical history: Reports: arthritis, atrial fibrillation, fibromyalgia, hypertension, other Surgical history: Reports: arthroscopy, other Psychiatric history: Reports: no psych history - Social History Smoking Status: Never smoker Smokeless Tobacco Status: No Alcohol use: Reports: occasionally Drug use: Reports: none Physical Exam - General Limitations: no limitations General appearance: alert, in no apparent distress - Head Head exam: atraumatic, normocephalic, normal inspection - Eye Eye exam: Present: normal appearance. Absent: scleral icterus, conjunctival injection - ENT ENT exam: normal exam, normal oropharynx, mucous membranes moist - Neck Neck exam: Present: normal inspection, full ROM. Absent: tenderness, meningismus - Chest Chest inspection: Present: symmetric chest wall rise, other (Redness to the chest and back). Absent: tenderness - Respiratory Respiratory exam: Present: normal lung sounds bilaterally. Absent: respiratory distress, wheezes - Cardiovascular Cardiovascular exam: Present: regular rate, normal heart sounds - Abdominal Exam Abdominal exam: Present: soft, Non-Tender, distention (Mild distention). Absent : guarding, rebound - Extremities Exam Extremities exam: Present: full ROM, other (Diffuse lower extremity swelling. Skin tight on exam. Tenderness to palpation throughout.) - Neurological Exam Neurological exam: Present: alert, oriented X3 - Psychiatric Psychiatric exam: Present: normal affect, normal mood - Skin Skin exam: Present: warm, dry Course Course Narrative: 41-year-old male presenting to the emergency Department chief complaint of fluid retention and rash. Patient is alert and oriented 3 in the room with stable vital signs. Maintaining airway. Concerned for Cardizem reaction at this time. We will provide the patient with Benadryl, Solu-Medrol and complete basic lab work and including CBC, BMP, troponin, EKG and chest x-ray. Disposition most likely admission for acute fluid retention but pending results. Patient agrees with this plan. - Reevaluation(s) Reevaluation #1: Patient's lab work has resulted in this within normal limits and unchanged from previously. Patient saw having severe pain in the lower extremities. Benadryl moderately helped rash. Bedside echo completed did not show any obvious dysfunction. We will plan to admit the patient at this time for concern for Cardizem reaction. Patient is alert and oriented 3 in the room with stable vital signs. He agrees with this plan. I spoke with the on-call hospitalist Dr. Cardoza who agrees to accept the patient at this time Vital Signs Temperature 98.3 F 10/06/17 02:10 Pulse Rate 89 10/06/17 02:10 Respiratory Rate 18 10/06/17 02:10 Blood Pressure 154/81 10/06/17 02:10 O2 Sat by Pulse Oximetry 100 10/06/17 02:10 Temperature 97.9 F 10/06/17 04:40 Pulse Rate 82 10/06/17 04:40 Respiratory Rate 18 10/06/17 04:40 Blood Pressure 147/83 10/06/17 04:40 O2 Sat by Pulse Oximetry 99 10/06/17 04:40 Oxygen Delivery Oxygen Delivery Room Air Medical Decision Making - Lab Data Result diagrams: 10/06/17 02:20 10/06/17 02:20 Lab Results 10/06/17 10/06/17 10/06/17 Range/Units 02:20 02:20 02:20 WBC 6.3 (4.3-11.1) K/mcL RBC 3.94 L (4.19-5.50) M/mcL Hgb 9.6 L (12.9-16.9) g/dL Hct 32.5 L (37.5-50.1) % MCV 82.5 L (83.0-100.0) fL MCH 24.4 L (28.0-33.3) pg MCHC 29.5 L (31.6-35.5) g/dL RDW 21.1 H (11.5-14.5) % Plt Count 279 (140-400) K/mcL MPV 10.2 (9.4-12.4) fL Immature Gran % 0.2 (0-4) % Seg Neutrophils % 68.0 % Lymphocytes % 21.7 % Monocytes % 7.5 % Eosinophils % 2.1 % Basophils % 0.5 % Neutrophils # 4.3 (1.6-8.9) K/mcL Lymphocytes # 1.4 (0.6-4.6) K/mcL Monocytes # 0.5 (0.0-1.3) K/mcL Eosinophils # 0.1 (0.0-0.6) K/mcL Basophils # 0.0 (0.0-0.2) K/mcL Sodium 139 (136-145) mEq/L Potassium 3.8 (3.5-5.1) mEq/L Chloride 108 H (98-107) mEq/L Carbon Dioxide 23 (23-29) mEq/L BUN 11 (6-20) mg/dL Creatinine 0.98 (0.70-1.30) mg/dL Est GFR ( Amer) > 60 (> 60) Est GFR (Non-Af Amer) > 60 (> 60) BUN/Creatinine Ratio 11 (6-26) Glucose 120 H (70-105) mg/dL Calculated Osmolality 289 (280-300) Calcium 8.8 (8.6-10.3) mg/dL Troponin I < 0.03 (< 0.04) ng/mL B-Natriuretic Peptide 44 (Less than 100) pg/mL - EKG Data EKG #1 EKG attestation: Yes I reviewed and interpreted this EKG. EKG results narrative: Sinus rhythm. Left axis deviation. 85 bpm. UT interval 179, QRS 110, QTC 417. No signs of acute ST segment elevation or ischemia noted. Attestation Statement - Attestation Attestation: I examined this patient and my medical decision-making was reviewed with the Resident Physician. I agree with the documented findings, disposition and treatment plan as described except to the extent set forth below. Patient to the ED with a chief complaint of swelling and redness. Onset over the past 24 hours. Patient was recently seen and admitted and was started on Cardizem. There is little short of breath. On examination he has diffuse flushing. No mucosal involvement. He does have 3-4+ pitting edema bilateral lower extremities up to his groin. Plan. Patient's chest x-ray is clear. Troponin negative. Question if this is all a side effect from the Cardizem. He is given Lasix, Solu-Medrol, and Benadryl. He is admitted to medicine.
[2017-10-06] MEDS ORDERED: traMADol 50 MG TABLET PO PRN (04:39)
[2017-10-06] MEDS ORDERED: Acetaminophen 325 MG TABLET PO PRN (04:39)
[2017-10-06] MEDS ORDERED: Naloxone 0.4 MG/ML INJ IVP PRN (04:39)
--- NOTE | 2017-10-06 04:52 | Internal Med History&Physical ---
Date of Encounter: 10/06/17 Time of Encounter: 04:15 Assessment and Plan (1) Allergic reaction caused by a drug Current visit: Yes Status: Acute 1. I suspect this is due to Cardizem as it was started 4 days ago. 2. Stop Cardizem. 3. Schedule doses of Solu-Medrol, Benadryl, and Pepid. 4. Will check urinalyiss to assess for proteinuria. He may need 24 hour urine protein. 5. No signs of respiratory distress on exam or by history. 6. If above measures do not work, consider Rheumatology consult to assist in evaluation and management. Qualifiers: Encounter type: initial encounter Qualified Code(s): T78.40XA - Allergy, unspecified, initial encounter (2) Paroxysmal atrial fibrillation Current visit: Yes Status: Chronic 1. Continue Flecainide per home dosing. 2. Stop Cardizem due to suspected allergic reaction. 3. Resume Lopressor per prior history and use of it. 4. Monitor on telemetry and consult cardiology if necessary. (3) DVT prophylaxis Current visit: No Status: Acute 1. Heparin SQ. Internal Medicine - H&P: HPI Chief complaint: BLE edema; ankle pains Admitted From: Emergency Dept Plans for Post Hospital Care: Home History of present illness: Mr. Garcia is a 41 year old male who presents to the ER tonight with complaints of bilateral lower extremity edema and pains in his ankles and knees. Symptoms started over the last 24-48 hours and have progressively worsened. He also has diffuse erythroderma throughout his torso. Prior to the symptom onset, he started a new medication -- Cardizem. Cardizem replaced metoprolol. He denies any difficulty breathing, lip or tongue swelling, or any stridor. Workup in the ER was negative except for anemia. His anemia is better than it was 2 weeks ago when he was admitted for GI bleed. He has had no further GI bleeding. ER gave him a dose of Lasix, Solu-Medrol, and Benadryl. He did urinate somewhat after Lasix. He has no history of heart failure. He had a recent ECHO in January 2017, which showed normal left ventricular ejection fraction. Upon my assessment of the patient, he has no signs or symptoms of respiratory distress. He is breathing easily and without difficulty. His biggest complaint is swelling of his legs and pain in his ankles and knees. He states his skin is tight in his legs and his wrists and arms and up to his abdomen. He denies any difficulty urinating. He has never had any kidney problems. Urinalysis was not yet obtained in the ER. He denies any history of proteinuria /nephrotic syndrome. Past Med Surg Social Fam HX - Past Medical History Attestation: Yes The following information was validated with the patient. Source: patient, old records reviewed Medical history: arthritis, atrial fibrillation, fibromyalgia, hypertension Psychiatric history: no psych history - Past Surgical History Surgical History: arthroscopy - Social History Smoking Status: Never smoker Smokeless Tobacco Status: No Alcohol use: occasionally Drug use: none Occupational status: employed Current living situation: Home, With Family Activity Level: Independent ambulation Recent Out of Country Travel Within the Last 8 Weeks: No - Family History Son Family Member Ethnicity: Non- Hx Family Cardiac Disorders: No Hx Family Respiratory Disorders: No Hx Family Cancer: No Hx Family GI Disorders: No Hx Family Endocrine Disorder: No Hx Family Neuromuscular Disorders: No Hx Family Neurologic Disorders: No Hx Family HEENT Disorders: No Hx Family Autoimmune Disorders: No Mother Family Member Ethnicity: Non- Living Status: Still Living Hx Family Cardiac Disorders: Yes (A Fib) Hx Family Respiratory Disorders: No Hx Family Cancer: Yes (skin) Hx Family GI Disorders: No Hx Family Endocrine Disorder: No Hx Family Neuromuscular Disorders: No Hx Family Neurologic Disorders: No Hx Family HEENT Disorders: No Hx Family Autoimmune Disorders: No Internal Medicine - H&P: Meds Metoprolol XL (24 HR) Succ [Toprol Xl] 50 mg PO BID #60 tab.er.24h 06/28/16 [Rx] Tadalafil [Cialis] 5 mg PO DAILY PRN 02/14/17 [History] GuaiFENesin ER [Mucinex] 1,200 mg PO BID #20 tbbp.12hr 09/21/17 [Rx] Meclizine HCl [Verticalm] 25 mg PO TID PRN #20 tablet 09/21/17 [Rx] Promethazine [Phenergan] 25 mg PO Q6HR PRN #10 tablet 09/21/17 [Rx] Flecainide 100 mg PO Q12H 09/22/17 [History] Ferrous Sulfate 325 mg PO BID #60 tablet 09/24/17 [Rx] 3 Allergy/AdvReac Type Severity Reaction Status Date / Time No Known Allergies Allergy Verified 04/20/17 18:14 - Constitutional Constitutional: no chills, no fever(s), no night sweats - EENT Eyes: no blurry vision, no change in vision Ears: no ear pain, no tinnitus Nose, mouth and throat: no change in voice, no dry mouth, no facial pain, no hoarseness, no lip swelling, no nasal congestion, no nasal discharge, no sinus pressure, no sore throat, no throat swelling, no tongue swelling - Cardiovascular Cardiovascular ROS IM: edema (throughout, including torso/abdomen), no chest pain, no dyspnea, no dyspnea on exertion, no orthopnea, no palpitations, no paroxysmal nocturnal dyspnea, no syncope - Respiratory Respiratory: no cough, no dyspnea, no hemoptysis, no wheezing, no chest congestion, no excessive phlegm production, no change in phlegm color - Gastrointestinal Gastrointestinal: no abdominal pain, no diarrhea, no hematemesis, no hematochezia, no melena, no nausea, no vomiting - Genitourinary Genitourinary ROS male: no dysuria, no flank pain, no hematuria - Musculoskeletal Musculoskeletal ROS IM: arthralgias (ankles and knees), no back pain, no muscle cramps, no muscle weakness - Integumentary Integumentary IM: erythema, no rash, no jaundice - Neurological Neurological ROS: no disequilibrium, no dizziness, no focal weakness, no frequent falls, no headache(s) - Psychiatric Psychiatric: no anxiety, no depression - Endocrine Endocrine IM: no polydipsia, no polyuria - Hematologic/Lymphatic Hematologic/Lymphatic: no easy bruising, no lymphadenopathy - Allergic/Immunologic Allergic/Immunologic: no wheezing, no GI upset with certain foods - Constitutional Vitals: Temp Pulse Resp BP Pulse Ox 97.9 F 82 18 147/83 99 10/06/17 04:40 10/06/17 04:40 10/06/17 04:40 10/06/17 04:40 10/06/17 04:40 General appearance: Present: cooperative, mild distress, A&O X 3, pleasant, answers questions appropriately - Head Head exam: Present: atraumatic, normal inspection - Eye Eye exam: Present: EOMI, normal appearance, PERRL. Absent: scleral icterus Pupils: Present: normal accommodation - ENT ENT exam: Present: mucous membranes moist, normal exam, normal oropharynx Additional comments: no lip or tongue swelling; no angioedema of soft tissues - Neck Neck exam general surgery: Present: full ROM, supple. Absent: lymphadenopathy, tenderness, nuchal rigidity, thyromegaly - Respiratory Respiratory exam: Present: CTAB. Absent: chest wall tenderness, prolonged expiratory phase, rales, respiratory distress, rhonchi, stridor, wheezes - Cardiovascular Cardiovascular exam: Present: RRR, +S1, +S2. Absent: diastolic murmur, distant heart sounds, systolic murmur - GI/Abdominal GI/Abdominal exam: Present: distended, normal bowel sounds. Absent: guarding, mass, rebound, tenderness Additional comments: edema up to abdomen - Extremities Exam Extremities exam: Present: joint swelling (ankles -- painful), normal capillary refill, pedal edema (3+), warm, radial pulses palpable and symmetrical. Absent : calf tenderness - Back Exam Back exam: Absent: CVA tenderness (L), CVA tenderness (R) - Neurological Exam Neurological exam: Present: alert, oriented X3, no focal deficits, strengths equal and symetr throughout - Psychiatric Psychiatric exam: Present: normal affect, normal mood - Skin Skin exam: Present: dry, erythema (diffuse -- mostly on back, abdomen, and chest ), warm. Absent: urticaria, vesicles Internal Med - H&P Results - Labs CBC & Chem 7: 10/06/17 02:20 10/06/17 02:20 - EKG Data -: EKG Interpreted by Myself - EKG Data Prior EKG available for review: no EKG comments: 10/06/17 05:25 NSR; no acute ST-T changes - Diagnostic Studies Chest x-ray Status: image reviewed by me
[2017-10-06] MEDS: Famotidine 20 MG/2 ML VIAL IVP SCH ×2 (05:16→17:49)
[2017-10-06] MEDS: *HR* Heparin 5,000 UNIT/ML VIAL SQ SCH ×2 (05:16→17:49)
[2017-10-06 05:44] LABS: Thyroid Stimulating Hormone 2.556 mcIU/mL (0.340-5.600)
[2017-10-06 05:58] LABS: Bilirubin,Urine Negative (Negative); Blood,Urine Negative (Negative); Clarity,Urine Clear (Clear); Color,Urine Yellow (Yellow); Glucose,Urine (UA) Normal (Normal); Ketones,Urine Negative (Negative); Leukocyte Esterase,Urine Negative (Negative); Nitrite,Urine Negative (Negative); PH,Urine 6.5 pH Units (5.0-8.0); Protein,Urine Negative (Neg-Trace); Specific Gravity,Urine 1.014 (1.010-1.025); Urobilinogen,Urine Normal (Normal)
[2017-10-06] MEDS: Metoprolol XL (24 HR) Succ 50 MG TAB.ER.24H PO SCH ×2 (09:08→19:54)
[2017-10-06] MEDS: methylPREDNISolone 125 MG/2 ML VIAL IVP SCH ×2 (11:32→19:54)
--- NOTE | 2017-10-06 17:20 | Event Note ---
Date of Encounter: 10/06/17 Time of Encounter: 14:30 (1) Allergic reaction caused by a drug presented with lower extremity swelling and pain. Possibly secondary to diltiazem which was started 4 days prior to arrival (patient reported he was unable to tolerate side effects of metoprolol so PCP switched to diltiazem ). Sx 's significantly improved with Solu-Medrol, Benadryl, and Pepid. Diltiazem stopped and BB restarted. No resp distress on exam. (2) Paroxysmal atrial fibrillation Patient reports isolated episode of A. fib in 2017. Status post DCCV at that time. Was anticoagulated for 30 days with Eliquis. Denies A. fib recurrence. Telemetry reviews possible A. fib paint tinter of 10/06/17. Rate controlled. Continue BB. [id number] score 1. Hold on anticoagulation. Continue Flecainide. Cardiology consult. Check echo (3) DVT prophylaxis heparin
[2017-10-07] MEDS: *HR* Heparin 5,000 UNIT/ML VIAL SQ SCH (05:02)
[2017-10-07] MEDS: methylPREDNISolone 125 MG/2 ML VIAL IVP SCH ×2 (05:03→12:37)
[2017-10-07] MEDS: Famotidine 20 MG/2 ML VIAL IVP SCH (05:03)
[2017-10-07 07:49] LABS: INR 1.1; Prothrombin Time 11.8 Seconds (9.4-12.1)
[2017-10-07 07:52] LABS: Activated Partial Thrombo Time 25.5 Seconds (26.0-36.0)
[2017-10-07 08:33] LABS: Basophils % 0.1 %; Hematocrit 32.5 % (37.5-50.1); Hemoglobin 9.6 g/dL (12.9-16.9); Immature Granulocytes % 0.5 % (0-4); Lymphocytes # 0.5 K/mcL (0.6-4.6); Lymphocytes % 3.8 %; Mean Corpuscular HGB Conc 29.5 g/dL (31.6-35.5); Mean Corpuscular Hemoglobin 24.6 pg (28.0-33.3); Mean Corpuscular Volume 83.3 fL (83.0-100.0); Mean Platelet Volume 10.7 fL (9.4-12.4); Monocytes # 0.2 K/mcL (0.0-1.3); Monocytes % 1.7 %; Neutrophils # 12.2 K/mcL (1.6-8.9); Platelet Count 280 K/mcL (140-400); Red Cell Distribution Width 21.6 % (11.5-14.5); Segmented Neutrophils % 93.9 %
[2017-10-07] MEDS: Metoprolol XL (24 HR) Succ 50 MG TAB.ER.24H PO SCH (08:59)
[2017-10-07 09:36] LABS: Thyroid Stimulating Hormone 0.335 mcIU/mL (0.340-5.600)
[2017-10-07 09:42] LABS: Alanine Aminotransferase 15 Units/L (7-52); Albumin 4.1 g/dL (3.5-5.7); Albumin/Globulin Ratio 1.8 (1.1-2.2); Alkaline Phosphatase 69 Units/L (34-104); Aspartate Amino Transferase 11 Units/L (13-39); BUN/Creatinine Ratio 16 (6-26); Bilirubin,Total 0.4 mg/dL (0.3-1.0); Blood Urea Nitrogen 14 mg/dL (6-20); Calcium 9.2 mg/dL (8.6-10.3); Carbon Dioxide 20 mEq/L (23-29); Chloride 108 mEq/L (98-107); Globulin 2.3 g/dL (2.4-3.5); Glucose 166 mg/dL (70-105); Osmolality,Calculated 290 (280-300); Sodium 138 mEq/L (136-145); Total Protein 6.4 g/dL (6.4-8.9); eGFR For African Americans > 60 (> 60); eGFR For Non-African Americans > 60 (> 60)
--- NOTE | 2017-10-07 10:57 | Electrophysiology Consult Note ---
Date of Encounter: 10/07/17 Time of Encounter: 10:54 Assessment and Plan (1) Atrial fibrillation Current Visit: No Status: Acute Side effect from cardizem, would D/C. Resume metorolol. No evidence of AF recurrance at this time. Qualifiers: Atrial fibrillation type: paroxysmal Qualified Code(s): I48.0 - Paroxysmal atrial fibrillation Discussion w patient/family: The assessment and plan as outlined above was discussed with the patient and/or family members who expressed understanding and agreement. All questions were answered. Thank you for involving us in the care of your patient. Please call with any questions. History of Present Illness Consult date: 10/07/17 Requesting physician: Danni Loco Consult reason: PAF Chief complaint: Swelling History of present illness: Mr. Garcia is a 41 year old male with a history of PAF. Recently he was started on cardizem as an outpt. He developed severe swelling after several days of the medicine. He stopped this and resumed his previous metoprolol and symptoms resolved. he has had some palitations but no definate AF. Past Med Surg Social Fam HX - Past Medical History Medical history: arthritis, atrial fibrillation, fibromyalgia, hypertension Psychiatric history: no psych history - Past Surgical History Surgical History: arthroscopy - Social History Smoking Status: Never smoker Smokeless Tobacco Status: No Alcohol use: occasionally Drug use: none - Family History Son Family Member Ethnicity: Non- Hx Family Cardiac Disorders: No Hx Family Respiratory Disorders: No Hx Family Cancer: No Hx Family GI Disorders: No Hx Family Endocrine Disorder: No Hx Family Neuromuscular Disorders: No Hx Family Neurologic Disorders: No Hx Family HEENT Disorders: No Hx Family Autoimmune Disorders: No Mother Family Member Ethnicity: Non- Living Status: Still Living Hx Family Cardiac Disorders: Yes (A Fib) Hx Family Respiratory Disorders: No Hx Family Cancer: Yes (skin) Hx Family GI Disorders: No Hx Family Endocrine Disorder: No Hx Family Neuromuscular Disorders: No Hx Family Neurologic Disorders: No Hx Family HEENT Disorders: No Hx Family Autoimmune Disorders: No Medications and Allergies Tadalafil [Cialis] 5 mg PO DAILY PRN 02/14/17 [History] Flecainide 100 mg PO BID 09/22/17 [History] Ferrous Sulfate 325 mg PO BID #60 tablet 09/24/17 [Rx] Fexofenadine HCl [Allergy Relief] 180 mg PO DAILY PRN 10/06/17 [History] Metoprolol XL (24 HR) Succ [Toprol XL] 50 mg PO BID 10/06/17 [History] Mv-Mn/FA/Vit K/Lycop/Lut/Coq10 [Daily Multivitamin Capsule] 1 tab PO DAILY 10/06 [History] Omeprazole [PriLOSEC] 20 mg PO DAILY 10/06/17 [History] 3 Allergy/AdvReac Type Severity Reaction Status Date / Time diltiazem [From Cardizem] Allergy See Verified 10/06/17 12:14 Comments All Systems Review: The remainder of the systems were reviewed and are negative Physical Examination Vital Signs, Last 4 Hours Temp Pulse Resp BP Pulse Ox 10/07/17 07:21 98.7 F 81 14 121/70 98 General: Conversant, No Apparent Distress HEENT: Atraumatic, Normocephaly, Mucus Membranes Moist Neck: No JVD, Normal carotid pulses Cardiac: Reg Rate and Rhythm, Normal S1 and S2, No Murmur Lungs: Normal Breath Sounds, No Wheeze, Rales, Rhonchi Neuro: Alert and responsive, No focal deficits noted Abdomen: Soft, Non-Tender Skin: No rashes noted on visualized skin Musculoskeletal: No Chest Wall Tenderness Extremities: No Clubbing, No Cyanosis, No Edema, Normal Pulses Results 10/07/17 06:12 10/07/17 06:12 Lab Results 10/07/17 10/07/17 10/07/17 06:12 06:12 06:12 WBC 13.0 H D Hgb 9.6 L Hct 32.5 L Plt Count 280 INR 1.1 APTT 25.5 L Sodium 138 Potassium 4.0 Chloride 108 H Carbon Dioxide 20 L BUN 14 Creatinine 0.89 Glucose 166 H Calcium 9.2 Magnesium 2.0 Total Bilirubin 0.4 AST 11 L ALT 15 Alkaline Phosphatase 69 TSH 10/07/17 06:12 WBC Hgb Hct Plt Count INR APTT Sodium Potassium Chloride Carbon Dioxide BUN Creatinine Glucose Calcium Magnesium Total Bilirubin AST ALT Alkaline Phosphatase TSH 0.335 L - EKG Interpretation EKG results cardiology: normal ECG (NSR) Consult Discharge Plan - Plan Referrals: Arron Yoon Jr, MD [Primary Care Provider] -
[2017-10-07 11:50] VITALS: BP 123/71
--- NOTE | 2017-10-07 14:25 | Discharge Summary ---
Orders not resulted at time of discharge: Pending orders 10/06/17 06:00 ECG 12 lead ECG [ECG] AM 0600 Date of Encounter: 10/07/17 Time of Encounter: 14:27 - Discharge Diagnosis (1) Allergic reaction caused by a drug Priority: Primary Status: Acute Comments: suspected; presented with lower extremity swelling and pain. Diltiazem started 4 days prior to arrival (patient reported he was unable to tolerate side effects of metoprolol so PCP switched to diltiazem ). Sx's significantly improved with Solu-Medrol, Benadryl, and Pepid. All sx's resolved at time of discharge. Diltiazem stopped and BB restarted. Follow-up with PCP Qualifiers: Encounter type: initial encounter Qualified Code(s): T78.40XA - Allergy, unspecified, initial encounter (2) Paroxysmal atrial fibrillation Priority: Primary Status: Chronic Comments: reported isolated episode of A. fib in 2017. Status post DCCV at that time. Was anticoagulated for 30 days with Eliquis. Denied A. fib recurrence. Evaluated by Cardiology who noted no evidence of AF recurrance, no need for anticoagulation. Continue home flecainide, BB. Follow-up with PCP and/or cardiology. (3) HTN (hypertension) Priority: Secondary Status: Chronic Comments: per hx. BP controlled. Cont home BP medication Qualifiers: Hypertension type: essential hypertension Qualified Code(s): I10 - Essential (primary) hypertension (4) Iron deficiency anemia Priority: Secondary Status: Chronic Comments: per hx. Hgb 9.6; appeared stable and at baseline. No active bleeding. Continue home iron supplements. Qualifiers: Iron deficiency anemia type: inadequate dietary iron intake Qualified Code( s): D50.8 - Other iron deficiency anemias Hospital course: Mr. Garcia is a 41 year old male with PMH PAF and hypertension who presented to [facility] 10/06[facility]2017 with complaints of lower extremity swelling and pain. He was placed in observation status for further workup and treatment. He was found have suspected drug reaction to diltiazem. He apparently was having adverse reactions to metoprolol and PCP started him on diltiazem 4 days prior to arrival. No respiratory distress. All symptoms resolved with IV steroids, H2, PPI. Diltiazem was stopped in home BB was resumed. He was evaluated by cardiology who did not appreciate A. fib recurrence and anticoagulation is not recommended. He was discharged home in stable condition with outpatient follow-up. Please see assessment and plan further details. Discharge discussed with: patient - Time Spent with Patient Total time spent providing and/or coordinating discharge services: - Discharge Medications Home Medications: Tadalafil [Cialis] 5 mg PO DAILY PRN 02/14/17 [History] Flecainide 100 mg PO BID 09/22/17 [History] Ferrous Sulfate 325 mg PO BID #60 tablet 09/24/17 [Rx] Fexofenadine HCl [Allergy Relief] 180 mg PO DAILY PRN 10/06/17 [History] Mv-Mn/FA/Vit K/Lycop/Lut/Coq10 [Daily Multivitamin Capsule] 1 tab PO DAILY 10/06 [History] Omeprazole [PriLOSEC] 20 mg PO DAILY 10/06/17 [History] Metoprolol XL (24 HR) Succ [Toprol Xl] 50 mg PO BID tab.er.24h 10/07/17 [Rx] Allergies/Adverse Reactions: 3 Allergy/AdvReac Type Severity Reaction Status Date / Time diltiazem [From Cardizem] Allergy See Verified 10/06/17 12:14 Comments Date of admission: 10/06/17 04:07 Primary care physician: Arron Yoon Jr, MD Consults: 10/06/17 17:21 Consult to Cardiology [CONS] Routine Comment: Consulting Provider: Card[facility] [place] Reason for Consult: Hx PAF, s/p remote DVVC now with recurrent A. fib. Not on anticoagulation. Rate controlled. Call Completed: No Discharging clinician: Danni Loco Anticipated date of discharge: 10/07/17 - Constitutional Vitals: Temp Pulse Resp BP Pulse Ox 98.4 F 92 16 123/71 97 10/07/17 11:48 10/07/17 11:48 10/07/17 11:48 10/07/17 11:48 10/07/17 11:48 General appearance: Present: cooperative, A&O X 3, pleasant, answers questions appropriately - Head Head exam: Present: atraumatic, normocephalic - Eye Eye exam: Present: PERRL, conjuntiva pink, sclera anicteric Pupils: Present: PERRL - Neck Neck exam general surgery: Present: supple, trachea midline. Absent: lymphadenopathy - Respiratory Respiratory exam: Present: CTAB. Absent: accessory muscle use, rales, rhonchi, wheezes - Cardiovascular Cardiovascular exam: Present: RRR, +S1, +S2. Absent: diastolic murmur, gallop, rubs, systolic murmur - GI/Abdominal GI/Abdominal exam: Present: normal bowel sounds, soft, no peritoneal signs. Absent: distended, tenderness - Extremities Exam Extremities exam: Present: warm, radial pulses palpable and symmetrical. Absent : calf tenderness, cyanotic, pedal edema - Neurological Exam Neurological exam: Present: CN II-XII intact, oriented X3, no focal deficits. Absent: pronater drift, facial droop, speech deficit - Skin Skin exam: Present: dry, intact - Patient Status Disposition: Home, Self-Care Condition: Good Functional capacity at discharge: independent ambulation Overall status at discharge: patient is back to baseline - Discharge Instructions Instructions: Metoprolol (By mouth) Follow Up With: Arron Yoon Jr, MD [Primary Care Provider] - - Diet and Activity Activity: increase activity as tolerated Diet: advance to your usual diet
--- NOTE | 2017-10-08 19:18 | Electrocardiograph Report ---
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
== END 2017-10-07 15:22 | disposition home or self-care (01) ==
LOC: 3BNU 02:09 → EMEROO 02:09 → 3BNU 04:35
PROVIDERS: ADMIT Internal Medicine; ATTEND Registered Nurse

== ENCOUNTER 2018-05-24 18:57 | Observation (INO) ==
[2018-05-24] MEDS ORDERED: Aspirin 325 MG TABLET PO ONE (19:18)
[2018-05-24] MEDS ORDERED: *HR* Metoprolol 5 MG/5 ML VIAL IVP ONE (19:22)
[2018-05-24 19:33] LABS: Basophils % 0.4 %; Eosinophils # 0.2 K/mcL (0.0-0.6); Hematocrit 36.2 % (37.5-50.1); Hemoglobin 11.7 g/dL (12.9-16.9); Immature Granulocytes % 0.2 % (0-4); Lymphocytes # 1.5 K/mcL (0.6-4.6); Mean Corpuscular HGB Conc 32.3 g/dL (31.6-35.5); Mean Corpuscular Hemoglobin 27.5 pg (28.0-33.3); Mean Platelet Volume 10.5 fL (9.4-12.4); Monocytes # 0.5 K/mcL (0.0-1.3); Monocytes % 9.1 %; Neutrophils # 3.5 K/mcL (1.6-8.9); Platelet Count 207 K/mcL (140-400); Red Blood Count 4.26 M/mcL (4.19-5.50); Red Cell Distribution Width 12.9 % (11.5-14.5); Segmented Neutrophils % 60.3 %
[2018-05-24 19:44] LABS: Prothrombin Time 11.3 Seconds (9.4-12.1)
--- NOTE | 2018-05-24 19:46 | Emergency Department Note ---
Disposition Clinical Impression: Atrial fibrillation with RVR Chest pain Qualifiers: Chest pain type: unspecified Qualified Code(s): R07.9 - Chest pain, unspecified Anemia Qualifiers: Anemia type: unspecified type Qualified Code(s): D64.9 - Anemia, unspecified Disposition: Admitted As Inpatient Condition: Good Time of Disposition: 20:52 General Adult HPI - General Chief complaint: ED Chest Pain Stated complaint: AFIB/CP Time Seen by Provider: 05/24/18 19:11 Source: patient Mode of arrival: ambulatory Limitations: no limitations Nursing Notes Reviewed: Yes Vital Signs Reviewed: Yes - History of Present Illness HPI Narrative: Patient is a 42-year-old male that presents the emergency department with palpitations and chest pain. Patient states that he has a history of atrial fibrillation. Patient states that this is what it feels like when he goes into A. fib. Patient states that he was at work and he was sitting down and developed this fluttering sensation in his chest. Patient states that he is not on any anticoagulation or any anti-arrhythmia medications at this time. Patient states that he became increasing short of breath with his palpitations. Patient has any radiation of his pain. Patient states that this pain is very similar to previous episodes. Patient states that he has required cardioversion in the past. Pain Scale: 5 - Related Data Allergies Allergy/AdvReac Type Severity Reaction Status Date / Time diltiazem [From Cardizem] Allergy See Verified 05/24/18 19:04 Comments All systems ED: reviewed and negative except as stated. Cardiovascular: Reports: chest pain, palpitations Respiratory: Reports: dyspnea Past Medical History - Past Medical History Medical history: Reports: non-contributory, other Surgical history: Reports: non-contributory, arthroscopy Psychiatric history: Reports: no psych history - Social History Smoking Status: Never smoker Smokeless Tobacco Status: No Alcohol use: Reports: none Drug use: Reports: none Physical Exam - General Limitations: no limitations General appearance: alert, in no apparent distress - Head Head exam: atraumatic, normocephalic - Eye Eye exam: Present: normal appearance, EOMI - Neck Neck exam: Present: normal inspection, full ROM, trachea midline - Respiratory Respiratory exam: Present: normal lung sounds bilaterally. Absent: respiratory distress, wheezes - Cardiovascular Cardiovascular exam: Present: tachycardia, irregular rhythm, normal heart sounds, +S1, +S2 - Abdominal Exam Abdominal exam: Present: soft, Non-Tender, normal bowel sounds - Neurological Exam Neurological exam: Present: alert, oriented X3 - Psychiatric Psychiatric exam: Present: normal affect, normal mood - Skin Skin exam: Present: warm, dry, intact Course Vital Signs Temperature 97.8 F 05/24/18 19:03 Pulse Rate 101 05/24/18 19:03 Respiratory Rate 20 05/24/18 19:03 Blood Pressure 137/90 05/24/18 19:03 O2 Sat by Pulse Oximetry 100 05/24/18 19:03 Temperature 97.8 F 05/24/18 19:27 Pulse Rate 101 05/24/18 19:27 Respiratory Rate 20 05/24/18 19:27 Blood Pressure 137/90 05/24/18 19:27 O2 Sat by Pulse Oximetry 100 05/24/18 19:27 Oxygen Delivery Oxygen Delivery Room Air Medical Decision Making - MDM Narrative Medical decision making narrative: Due the patient presenting to the emergency department with atrial fibrillation and chest pain we will obtain basic lab for testing CBC, BMP, troponin chest x- ray and EKG. Patient does have an allergy to the diltiazem so 5 of Lopressor was given to assist with rate control. Patient will likely need to be admitted to the hospital for further evaluation and management. Patient has a mild anemia of 11.7 however this appears to be chronic for him. The remainder of his laboratory testing was relatively unremarkable. After 5 mg of Lopressor the patient's heart rate was in the 90s. Patient states that he is still feeling some palpitations. The patient will need to be admitted to the hospital this time for further evaluation and management of his atrial fibrillation. Called and spoke the admitting hospitalist Dr. Anne and he has a accepted the patient to his service. Patient be admitted to the hospital this time for further evaluation and management. - Medical Records Medical records reviewed: Yes I reviewed the patient's medical records. - Lab Data Lab results reviewed: Yes I reviewed the patient's lab results. Result diagrams: 05/24/18 19:18 05/24/18 19:18 - Radiology Data Radiology results reviewed: Yes I reviewed the patient's radiology results. Chest X-Ray 05/24/18 19:18 IMPRESSION: Normal chest x-ray D/ / Gerald Mclean MD / Gerald Mclean MD Interpreting Provider: Gerald Mclean MD - EKG Data EKG #1 EKG attestation: Yes I reviewed and interpreted this EKG. EKG results narrative: EKG showed atrial fibrillation with rapid ventricular response at 118 bpm, QRS duration of 103, QTC of 41 with a normal axis. No evidence of STEMI on EKG. Attestation Statement - Attestation Attestation: I examined this patient and my medical decision-making was reviewed with the Resident Physician, Dr. Mosley. I agree with the documented findings, disposition and treatment plan as described except to the extent set forth below. Pt is a 42 yo wm with hx of atiral fibrillation, not currently on cardiac meds or blood thinners. Pt reports he has had extensive cardiac testing and has required cardioversion x 2 in past for conversion. Pt last on flecanide, which was DC'd by his doctors 6 mo ago and this is his first recurrence. Pt c/o CP/press, and palpiations. No hx AMI. I agree with pt's PE findings as documented, pt hemodynamically stable on arri renato. Pt received ASA on arrival and given lopressor for rate control. Labs and imaging ordered. Pt in NAD, EKG shows a fib without ischemia. Pt with effective rate control following lopressor, remains in a fib. Labs wnl. Will admit for further eval/mgmt. Accepted by hospitalist service.
[2018-05-24 19:47] LABS: Activated Partial Thrombo Time 31.4 Seconds (26.0-36.0)
[2018-05-24 19:53] LABS: BUN/Creatinine Ratio 12 (6-26); Blood Urea Nitrogen 12 mg/dL (6-20); Calcium 8.9 mg/dL (8.6-10.3); Carbon Dioxide 28 mEq/L (23-29); Chloride 105 mEq/L (98-107); Glucose 94 mg/dL (70-105); Osmolality,Calculated 290 (280-300); Potassium 3.9 mEq/L (3.5-5.1); Sodium 140 mEq/L (136-145); eGFR For Non-African Americans > 60 (> 60)
[2018-05-24 19:54] LABS: Troponin I < 0.03 ng/mL (< 0.04)
[2018-05-24 20:07] LABS: Thyroid Stimulating Hormone 2.662 mcIU/mL (0.340-5.600)
[2018-05-24] MEDS ORDERED: *HR* Enoxaparin 120 MG/0.8 ML SYRINGE SQ ONE (21:41)
--- NOTE | 2018-05-24 22:35 | Internal Med History&Physical ---
Date of Encounter: 05/24/18 Time of Encounter: 22:35 Internal Medicine - H&P: HPI Chief complaint: palpitations Admitted From: Home Plans for Post Hospital Care: Home History of present illness: Kuldeep Garcia is a 42 year old man with a history of paroxysmal atrial fibrillation and has undergone cardioversion in the past who presents to the emergency room with a complaint of palpitations and was found to be in A. fib with RVR. He says he has been taking flecainide over the past year and a half however this was discontinued about 3 months ago when it was seen that he was doing well. He takes by systolic for blood pressure but is not on any other active control agent. He is not on anticoagulation or aspirin either. He received 5mg IVP metoprolol with plans to observe him overnight and undergo cardiology evaluation for medication adjustment. He denies having had chest pain, dyspnea or lightheadedness at any time, stating that he was sitting down at work when it started and he rushed himself here. He feels comfortable at this time. He reports that he was once on diltiazem but developed an allergic reaction to it where his whole body became swollen. Past Med Surg Social Fam HX - Past Medical History Medical history: non-contributory, other Additional medical history: anemia Psychiatric history: no psych history - Past Surgical History Surgical History: non-contributory, arthroscopy Additional surgical history: Tonsillectomy, arthroscopy of right knee. - Social History Smoking Status: Never smoker Smokeless Tobacco Status: No Alcohol use: none Drug use: none - Family History Son Family Member Ethnicity: Non- Hx Family Cardiac Disorders: No Hx Family Respiratory Disorders: No Hx Family Cancer: No Hx Family GI Disorders: No Hx Family Endocrine Disorder: No Hx Family Neuromuscular Disorders: No Hx Family Neurologic Disorders: No Hx Family HEENT Disorders: No Hx Family Autoimmune Disorders: No Mother Family Member Ethnicity: Non- Living Status: Still Living Hx Family Cardiac Disorders: Yes (A Fib) Hx Family Respiratory Disorders: No Hx Family Cancer: Yes (skin) Hx Family GI Disorders: No Hx Family Endocrine Disorder: No Hx Family Neuromuscular Disorders: No Hx Family Neurologic Disorders: No Hx Family HEENT Disorders: No Hx Family Autoimmune Disorders: No Internal Medicine - H&P: Meds Fexofenadine HCl [Allergy Relief] 180 mg PO DAILY 05/24/18 [History] Nebivolol [Bystolic] 5 mg PO DAILY 05/24/18 [History] Omeprazole [PriLOSEC] 20 mg PO DAILY 05/24/18 [History] Tadalafil [Cialis] 5 mg PO DAILY 05/24/18 [History] Allergy/AdvReac Type Severity Reaction Status Date / Time diltiazem [From Cardizem] Allergy See Verified 05/24/18 19:04 Comments All Systems PM: A 10-system review of systems was performed and is negative for pertinent findings except as documented above in the HPI. - Constitutional Vitals: Temp Pulse Resp BP Pulse Ox 97.9 F 96 16 133/84 97 05/24/18 21:55 05/24/18 21:55 05/24/18 21:55 05/24/18 21:55 05/24/18 21:55 Exam: Vitals: Reviewed General: Well-developed white male lying comfortably in bed in no acute distress Skin: Warm and supple HEENT: Moist mucous membranes. No conjunctivae pallor. Neck: No lymphadenopathy. No JVD. No carotid bruits. No palpable thyroid. Chest: Normal thoracic expansion. Normal breath sounds. Clear to auscultation. Heart: Irregularly irregular but rate controlled and with no pulse deficit. Abdomen: Non-distended, soft and non-tender to palpation. No peritoneal reaction Extremities: No clubbing, cyanosis or edema. No calf tenderness. Normal distal pulses. Neurological: Awake, alert and oriented to person, place and time. No focal deficits. Psych: Affect appropriate. Internal Med - H&P Results - Labs CBC & Chem 7: 05/24/18 19:18 05/24/18 19:18 Labs: Short CBC 05/24/18 Range/Units 19:18 WBC 5.7 (4.3-11.1) K/mcL Hgb 11.7 L (12.9-16.9) g/dL Hct 36.2 L (37.5-50.1) % Plt Count 207 (140-400) K/mcL Neutrophils # 3.5 (1.6-8.9) K/mcL BMP 05/24/18 19:18 Sodium 140 Potassium 3.9 Chloride 105 Carbon Dioxide 28 BUN 12 Creatinine 0.99 Glucose 94 Calcium 8.9 Cardiac Enzymes 05/24/18 Range/Units 19:18 Troponin I < 0.03 (< 0.04) ng/mL - Impressions ITS Impressions Chest X-Ray 05/24/18 19:18 IMPRESSION: Normal chest x-ray D/ / Gerald Mclean MD / Gerald Mclean MD Interpreting Provider: Gerald Mclean MD - Assessment and plan (1) Atrial fibrillation with RVR Current Visit: Yes Status: Acute Assessment and plan: Rate now controlled after IV metoprolol. Has allergy to diltiazem. Will give a PO dose of metoprolol tonight. Obtain TTE in the morning. Await cardiology recommendations on need to resume anti-arrhythmic agent or simply rate control.[id number] is [address]. [address] on aspiring 81mg daily. (2) HTN (hypertension) Current Visit: Yes Status: Chronic Assessment and plan: Will resume home medications. Qualifiers: Hypertension type: essential hypertension Qualified Code(s): I10 - E ssential (primary) hypertension (3) Anemia Current Visit: Yes Status: Acute Assessment and plan: Chronic. Stable. Qualifiers: Anemia type: unspecified type Qualified Code(s): D64.9 - Anemia, unspecified (4) DVT prophylaxis Current Visit: Yes Status: Acute Assessment and plan: Will administer 1 shot of therapeutic LMWH now given the RVR presentation and not being on any anticoagulant or antiplatelet to reduce the risk of VTE. Will be on ASA as of tomorrow at which time if he remains hospitalized subq heparin can be started. - Time Spent With Patient Total time spent is greater than 50% in coordination of care (as documented) at patient's floor/unit and/or counseling patient: Greater than 35 minutes
[2018-05-25] MEDS ORDERED: Aspirin 81 MG TAB.CHEW PO SCH (09:00)
--- NOTE | 2018-05-25 09:15 | Cardiology Consult Note ---
Addendum entered and electronically signed by Luis Enrique Britt MD 05/25/18 14:43: I examined this patient and my medical decision-making was reviewed with the POND WORKER. I agree with the documented findings, disposition and treatment plan as described except to the extent set forth below. A/P: PAF HTN Minimal symptoms with rate control, continue such until outpatient followup. TTE shows normal EF and valves. Acceptable to resume Eliquis for chronic AC. Patient stable for discharge from cardio perspective. Thank you for the consult, Luis Enrique Britt MD [facility] Original Note: Date of Encounter: 05/25/18 Time of Encounter: 09:15 Assessment and Plan (1) Atrial fibrillation with RVR Current Visit: Yes Status: Acute Per Cardiology: Past history of paroxysmal atrial fibrillation and previously on antiarrhythmic therapy of flecainide-- patient stopped d/t running out of med and having difficulty obtaining refills and follow-up appointment. TSH, magnesium, troponin stable. We will discontinue Bystolic and start Lopressor 12.5 mg by mouth twice a day and monitor heart rate and blood pressure closely. Current systolic blood pressures in the 100s. Patient desires for rate control strategy wants to go home today if able. Patient agreeable to follow-up in outpatient setting to evaluate resumption of antiarrhythmic in the future. Echo pending. Regarding long-term anticoagulation, recommend resuming previous anticoagulation of Eliquis 5mg PO BID. Discussion w patient/family: The assessment and plan as outlined above was discussed with the patient and/or family members who expressed understanding and agreement. All questions were answered. Thank you for involving us in the care of your patient. Please call with any questions. History of Present Illness Consult date: 05/25/18 Requesting physician: Alexandro Reyna Consult reason: afib Chief complaint: Rapid HR History of present illness: Mr. Mclaughlin is a 42 year old male with a relevant past medical history of paroxysmal atrial fibrillation, hypertension, and GERD. Cardiology consult for A. fib with RVR. Patient reports difficulty with follow-up with cardiology office and refilling his antiarrhythmic flecainide. He reports he has been off medication now for about 4 months. He does confirm he stopped anticoagulation of Eliquis her Dr. Tung Gallagher recommendations February 2017. He reports yesterday at work while sitting drinking cold ice water he felt sudden onset of rapid heart rate with mild chest tightness and palpitations. He reports overall symptoms currently improved, however still can feel occasional palpitations. He denies any recent infectious process. Denies any active bleeding or blood loss. Denies any new concerns or complaints. Past Med Surg Social Fam HX - Past Medical History Attestation: Yes The following information was validated with the patient. Source: patient, old records reviewed Medical history: non-contributory, atrial fibrillation, other Additional medical history: anemia Psychiatric history: no psych history - Past Surgical History Surgical History: non-contributory, arthroscopy Additional surgical history: Tonsillectomy, arthroscopy of right knee. - Social History Smoking Status: Never smoker Smokeless Tobacco Status: No Alcohol use: rarely Drug use: none - Family History Son Name: matt mclaughlin Age: 9 Family Member Ethnicity: Non- Hx Family Cardiac Disorders: No Hx Family Respiratory Disorders: No Hx Family Cancer: No Hx Family GI Disorders: No Hx Family Endocrine Disorder: No Hx Family Neuromuscular Disorders: No Hx Family Neurologic Disorders: No Hx Family HEENT Disorders: No Hx Family Autoimmune Disorders: No Mother Name: william mclaughlin Family Member Ethnicity: Non- Living Status: Still Living Hx Family Cardiac Disorders: Yes (A Fib) Hx Family Respiratory Disorders: No Hx Family Cancer: Yes (skin) Hx Family GI Disorders: No Hx Family Endocrine Disorder: No Hx Family Neuromuscular Disorders: No Hx Family Neurologic Disorders: No Hx Family HEENT Disorders: No Hx Family Autoimmune Disorders: No Medications and Allergies Fexofenadine HCl [Allergy Relief] 180 mg PO DAILY 05/24/18 [History] Nebivolol [Bystolic] 5 mg PO DAILY 05/24/18 [History] Omeprazole [PriLOSEC] 20 mg PO DAILY 05/24/18 [History] Tadalafil [Cialis] 5 mg PO DAILY 05/24/18 [History] Allergy/AdvReac Type Severity Reaction Status Date / Time diltiazem [From Cardizem] Allergy See Verified 05/24/18 19:04 Comments All Systems Review: The remainder of the systems were reviewed and are negative - Cardiovascular Cardiovascular: as per HPI, chest pain at rest, irregular heart rhythm, palpitations, rapid heart rate Physical Examination Vital Signs, Last 4 Hours Temp Pulse Resp BP Pulse Ox 05/25/18 06:57 97.7 F 68 16 104/65 96 General: Conversant, No Apparent Distress HEENT: Atraumatic, Normocephaly, Mucus Membranes Moist Neck: No JVD, Normal carotid pulses Cardiac: Normal S1 and S2, No Murmur, Other (Irregularly irregular) Lungs: Normal Breath Sounds, No Wheeze, Rales, Rhonchi Neuro: Alert and responsive, No focal deficits noted Abdomen: Soft, Non-Tender Skin: No rashes noted on visualized skin Musculoskeletal: No Chest Wall Tenderness Extremities: No Clubbing, No Cyanosis, No Edema, Normal Pulses Results 05/24/18 19:18 05/24/18 19:18 Lab Results Laboratory Tests 05/24/18 05/24/18 05/24/18 19:18 19:18 19:18 Hgb 11.7 L Hct 36.2 L INR 1.0 Creatinine 0.99 Est GFR (Non-Af Amer) > 60 Magnesium 2.0 Troponin I < 0.03 TSH 2.662 ITS Impressions Chest X-Ray 05/24/18 19:18 IMPRESSION: Normal chest x-ray D/ / Gerald Mclean MD / Gerald Mclean MD Interpreting Provider: Gerald Mclean MD Active Medications Aspirin (Aspirin) 81 mg PO DAILY [facility] Stop: 11/24/18 09:01 Last Admin: 05/25/18 08:29 Dose: 81 mg Nebivolol (Bystolic) 5 mg PO DAILY [facility] Stop: 11/24/18 09:01 Last Admin: 05/25/18 08:29 Dose: 5 mg Omeprazole (Prilosec) 20 mg PO DAILY@0730 [facility]; Protocol Stop: 11/24/18 07:31 Last Admin: 05/25/18 08:29 Dose: 20 mg - Imaging and Cardiology Echo: pending - EKG Interpretation EKG results cardiology: other (Average heart rate past 12 hours 93, currently A. fib in the 100s on telemetry) Consult Discharge Plan - Plan Referrals: Arron Yoon Jr, MD [Primary Care Provider] -
[2018-05-25] MEDS ORDERED: Apixaban 5 MG TABLET PO SCH (11:00)
[2018-05-25 11:42] VITALS: BP 112/76
--- NOTE | 2018-05-25 14:09 | Event Note ---
Date of Encounter: 05/25/18 Time of Encounter: 14:10 - Cardiology Event Note Awaiting echo, assuming ok, anticipate dc to home. F/u arranged with cardio. Primary service aware.
--- NOTE | 2018-05-25 15:16 | Discharge Summary ---
- NOTES TO OUTPATIENT PROVIDER Notes to Outpatient Provider: Follow-up with cardiology as an outpatient Orders not resulted at time of discharge: Pending orders 05/24/18 19:18 ECG 12 lead ECG [ECG] Stat Date of Encounter: 05/25/18 Time of Encounter: 11:00 - Discharge Diagnosis (1) Atrial fibrillation with RVR Priority: Primary Status: Acute (2) HTN (hypertension) Priority: Secondary Status: Chronic Qualifiers: Hypertension type: essential hypertension Qualified Code(s): I10 - Essential (primary) hypertension (3) Anemia Priority: Secondary Status: Acute Qualifiers: Anemia type: unspecified type Qualified Code(s): D64.9 - Anemia, unspecified Hospital course: Patient is a 42-year-old male with past medical history significant for paroxysmal atrial fibrillation and has undergone cardioversion in the past who presents to the emergency room with a complaint of palpitations and was found to be in A. fib with RVR. He says he has been taking flecainide over the past year and a half however this was discontinued about 3 months ago when it was seen that he was doing well. During patients hospital stay cardiology was consulted with recommendations for discontinuing Bystolic and starting patient on Lopressor in addition to resuming patients Eliquis. Patient will follow-up with cardiology as an outpatient. - Time Spent with Patient Total time spent providing and/or coordinating discharge services: Less than 30 minutes - Discharge Medications Prescriptions: Apixaban [Eliquis] 5 mg PO BID #60 tablet Metoprolol [Lopressor] 12.5 mg PO BID #60 tablet Home Medications: Fexofenadine HCl [Allergy Relief] 180 mg PO DAILY 05/24/18 [History] Omeprazole [PriLOSEC] 20 mg PO DAILY 05/24/18 [History] Tadalafil [Cialis] 5 mg PO DAILY 05/24/18 [History] Apixaban [Eliquis] 5 mg PO BID #60 tablet 05/25/18 [Rx] Metoprolol [Lopressor] 12.5 mg PO BID #60 tablet 05/25/18 [Rx] Allergies/Adverse Reactions: Allergy/AdvReac Type Severity Reaction Status Date / Time diltiazem [From Cardizem] Allergy See Verified 05/24/18 19:04 Comments Date of admission: 05/24/18 21:02 Primary care physician: Arron Yoon Jr, MD Consults: 05/24/18 21:42 Consult to Cardiology [CONS] Routine Comment: Consulting Provider: Cardiology Lainey Reason for Consult: hx of paroxysmal afib. was on flecainide for 18m. discontinued 3m ago. comes in with RVR. Takes Bystolic at home. Call Completed: No - Constitutional Vitals: Temp Pulse Resp BP Pulse Ox 98.3 F 74 18 112/76 97 05/25/18 11:41 05/25/18 11:41 05/25/18 11:41 05/25/18 11:41 05/25/18 11:41 Exam: Gen.: Nonacute distress, alert and oriented 3 Skin: Normal color - Patient Status Disposition: Home, Self-Care Condition: Good - Discharge Instructions Instructions: Metoprolol (By mouth), Apixaban (By mouth), Atrial Fibrillation (DC) Follow Up With: Arron Yoon Jr, MD [Primary Care Provider] -
--- NOTE | 2018-05-31 09:55 | Electrocardiograph Report ---
[place] [id number] Test Date: 2018-05-24 Pat Name: Kuldeep Garcia Department: [id number] Room: 3B Gender: M X Ray Inspector: : 1975 Requested By: Brigitte Degroot Order Number: [id number] Reading MD: Estuardo Sue Measurements Intervals [place] Rate: 118 P: MO: QRS: 57 QRSD: 103 T: 24 QT: 337 QTc: 401 Interpretive Statements Atrial fibrillation PVC or aberrant conduction Electronically Signed On 05-31-2018 9:54:03 EDT by Estuardo Sue
== END 2018-05-25 16:20 | disposition home or self-care (01) ==
LOC: 3BNU 18:57 → EMEROOARM 18:57 → SUATTDRO 21:02 → 3BNU 21:40
PROVIDERS: ADMIT Internal Medicine; ATTEND Hospitalist

== ENCOUNTER 2019-05-03 00:26 | Inpatient (IN) ==
[2019-05-03] MEDS: Nitroglycerin 0.4 MG TAB.SUBL SL SCH ×3 (01:10→08:36)
[2019-05-03] MEDS ORDERED: Esmolol 100 MG/10 ML VIAL IVP ONE ×2 (01:19→01:37)
[2019-05-03 01:21] LABS: Basophils % 0.3 %; Eosinophils # 0.1 K/mcL (0.0-0.6); Hematocrit 38.4 % (37.5-50.1); Hemoglobin 11.7 g/dL (12.9-16.9); Immature Granulocytes % 0.2 % (0-4); Lymphocytes % 21.7 %; Mean Corpuscular HGB Conc 30.5 g/dL (31.6-35.5); Mean Corpuscular Hemoglobin 25.7 pg (28.0-33.3); Mean Corpuscular Volume 84.2 fL (83.0-100.0); Mean Platelet Volume 12.1 fL (9.4-12.4); Monocytes # 0.6 K/mcL (0.0-1.3); Monocytes % 8.7 %; Neutrophils # 4.5 K/mcL (1.6-8.9); Platelet Count 158 K/mcL (140-400); Red Blood Count 4.56 M/mcL (4.19-5.50); Red Cell Distribution Width 14.8 % (11.5-14.5); Segmented Neutrophils % 67.1 %; White Blood Count 6.7 K/mcL (4.3-11.1)
[2019-05-03 01:30] LABS: BUN/Creatinine Ratio 11 (6-26); Blood Urea Nitrogen 12 mg/dL (6-20); Calcium 9.1 mg/dL (8.6-10.3); Carbon Dioxide 24 mEq/L (23-29); Chloride 107 mEq/L (98-107); Glucose 93 mg/dL (70-105); Osmolality,Calculated 283 (280-300); Potassium 3.6 mEq/L (3.5-5.1); Sodium 137 mEq/L (136-145); eGFR For African Americans > 60 (> 60); eGFR For Non-African Americans > 60 (> 60)
[2019-05-03 01:31] LABS: Troponin I < 0.03 ng/mL (< 0.04)
[2019-05-03] MEDS ORDERED: Esmolol 2.5 GM/250 ML MLS IVC ONE (01:37)
[2019-05-03] MEDS: Esmolol 2.5 GM/250 ML MLS IVC SCH ×2 (01:44→13:00)
[2019-05-03 01:59] LABS: Lymphocytes # 1.5 K/mcL (0.6-4.6)
[2019-05-03] MEDS ORDERED: Naloxone 0.4 MG/ML INJ IVP PRN ×2 (05:04→17:55)
[2019-05-03] MEDS ORDERED: *HR* Heparin 5,000 UNIT/ML VIAL SQ SCH (06:00)
[2019-05-03 07:37] LABS: Alanine Aminotransferase 13 Units/L (7-52); Albumin 3.9 g/dL (3.5-5.7); Alkaline Phosphatase 72 Units/L (34-104); Aspartate Amino Transferase 15 Units/L (13-39); BUN/Creatinine Ratio 13 (6-26); Bilirubin,Total 0.3 mg/dL (0.3-1.0); Blood Urea Nitrogen 12 mg/dL (6-20); Calcium 8.4 mg/dL (8.6-10.3); Carbon Dioxide 24 mEq/L (23-29); Chloride 110 mEq/L (98-107); Glucose 110 mg/dL (70-105); Magnesium 1.9 mg/dL (1.6-2.6); Osmolality,Calculated 290 (280-300); Sodium 140 mEq/L (136-145); Total Protein 5.9 g/dL (6.4-8.9); eGFR For African Americans > 60 (> 60); eGFR For Non-African Americans > 60 (> 60)
[2019-05-03] MEDS ORDERED: *HR* Heparin 5,000 UNIT/ML VIAL IVP PRN ×6 (09:36→17:55)
[2019-05-03] MEDS ORDERED: *HR* Heparin 5,000 UNIT/ML VIAL IVP ONE (09:36)
[2019-05-03] MEDS ORDERED: Heparin 25,000 UNIT/250 ML D5W 25,000 UNIT/250 ML IV.SOLN IVC SCH ×2 (09:45→10:45)
[2019-05-03 10:49] LABS: Hematocrit 39.3 % (37.5-50.1); Mean Corpuscular HGB Conc 30.5 g/dL (31.6-35.5); Mean Corpuscular Hemoglobin 25.7 pg (28.0-33.3); Mean Corpuscular Volume 84.2 fL (83.0-100.0); Platelet Count 196 K/mcL (140-400); Red Blood Count 4.67 M/mcL (4.19-5.50); Red Cell Distribution Width 15.1 % (11.5-14.5); White Blood Count 5.6 K/mcL (4.3-11.1)
[2019-05-03 10:57] LABS: Prothrombin Time 11.9 Seconds (9.4-12.1)
[2019-05-03 11:00] LABS: Heparin anti-factor XA UFH 0.01 IU/mL (0.30-0.70)
[2019-05-03] MEDS ORDERED: Perflutren Lipid Microsphere 1.3 ML in 0.9 % Sodium Chloride 8.7 ML IVP ONE (14:34)
[2019-05-03] MEDS ORDERED: Aspirin Enteric Coated 81 MG Tablet PO SCH (14:52)
[2019-05-03] MEDS ORDERED: Esmolol 2.5 GM/250 ML MLS IVC SCH (17:55)
[2019-05-03] MEDS: Heparin 25,000 UNIT/250 ML D5W 25,000 UNIT/250 ML IV.SOLN IVC SCH (21:15)
[2019-05-04 00:22] LABS: Basophils % 0.3 %; Eosinophils # 0.1 K/mcL (0.0-0.6); Eosinophils % 1.7 %; Hematocrit 39.5 % (37.5-50.1); Immature Granulocytes % 0.2 % (0-4); Lymphocytes # 1.6 K/mcL (0.6-4.6); Lymphocytes % 24.7 %; Mean Corpuscular HGB Conc 30.4 g/dL (31.6-35.5); Mean Corpuscular Hemoglobin 25.5 pg (28.0-33.3); Mean Corpuscular Volume 83.9 fL (83.0-100.0); Mean Platelet Volume 10.5 fL (9.4-12.4); Monocytes # 0.5 K/mcL (0.0-1.3); Monocytes % 7.1 %; Neutrophils # 4.2 K/mcL (1.6-8.9); Platelet Count 192 K/mcL (140-400); Red Blood Count 4.71 M/mcL (4.19-5.50); Red Cell Distribution Width 14.8 % (11.5-14.5); White Blood Count 6.3 K/mcL (4.3-11.1)
[2019-05-04 00:39] LABS: Alanine Aminotransferase 14 Units/L (7-52); Albumin 4.1 g/dL (3.5-5.7); Alkaline Phosphatase 64 Units/L (34-104); Aspartate Amino Transferase 14 Units/L (13-39); BUN/Creatinine Ratio 14 (6-26); Bilirubin,Total 0.3 mg/dL (0.3-1.0); Blood Urea Nitrogen 14 mg/dL (6-20); Calcium 8.7 mg/dL (8.6-10.3); Carbon Dioxide 22 mEq/L (23-29); Chloride 108 mEq/L (98-107); Globulin 2.1 g/dL (2.4-3.5); Glucose 121 mg/dL (70-105); Osmolality,Calculated 290 (280-300); Phosphorous 2.8 mg/dL (2.7-4.5); Potassium 3.6 mEq/L (3.5-5.1); Sodium 139 mEq/L (136-145); Total Protein 6.2 g/dL (6.4-8.9); eGFR For African Americans > 60 (> 60); eGFR For Non-African Americans > 60 (> 60)
[2019-05-04] MEDS: Heparin 25,000 UNIT/250 ML D5W 25,000 UNIT/250 ML IV.SOLN IVC SCH ×2 (03:20→15:08)
[2019-05-04] MEDS: Aspirin Enteric Coated 81 MG Tablet PO SCH (08:14)
[2019-05-04] MEDS ORDERED: *HR* Metoprolol 5 MG/5 ML VIAL IVP ONE (12:45)
[2019-05-05 01:15] LABS: Basophils % 0.4 %; Eosinophils # 0.1 K/mcL (0.0-0.6); Eosinophils % 1.6 %; Hematocrit 40.6 % (37.5-50.1); Hemoglobin 12.6 g/dL (12.9-16.9); Immature Granulocytes % 0.1 % (0-4); Lymphocytes # 1.5 K/mcL (0.6-4.6); Lymphocytes % 22.1 %; Mean Corpuscular Hemoglobin 26.3 pg (28.0-33.3); Mean Corpuscular Volume 84.6 fL (83.0-100.0); Monocytes # 0.5 K/mcL (0.0-1.3); Monocytes % 7.2 %; Neutrophils # 4.7 K/mcL (1.6-8.9); Platelet Count 220 K/mcL (140-400); Segmented Neutrophils % 68.6 %; White Blood Count 6.9 K/mcL (4.3-11.1)
[2019-05-05 01:35] LABS: Alanine Aminotransferase 16 Units/L (7-52); Albumin 4.3 g/dL (3.5-5.7); Alkaline Phosphatase 71 Units/L (34-104); Aspartate Amino Transferase 17 Units/L (13-39); BUN/Creatinine Ratio 13 (6-26); Bilirubin,Total 0.2 mg/dL (0.3-1.0); Blood Urea Nitrogen 13 mg/dL (6-20); Calcium 9.2 mg/dL (8.6-10.3); Carbon Dioxide 22 mEq/L (23-29); Chloride 107 mEq/L (98-107); Globulin 2.2 g/dL (2.4-3.5); Glucose 118 mg/dL (70-105); Magnesium 1.9 mg/dL (1.6-2.6); Osmolality,Calculated 287 (280-300); Phosphorous 3.4 mg/dL (2.7-4.5); Potassium 3.8 mEq/L (3.5-5.1); Sodium 138 mEq/L (136-145); Total Protein 6.5 g/dL (6.4-8.9); eGFR For African Americans > 60 (> 60); eGFR For Non-African Americans > 60 (> 60)
[2019-05-05] MEDS: Heparin 25,000 UNIT/250 ML D5W 25,000 UNIT/250 ML IV.SOLN IVC SCH (06:05)
[2019-05-05] MEDS: Aspirin Enteric Coated 81 MG Tablet PO SCH (09:38)
[2019-05-05] MEDS ORDERED: *HR* Heparin 5,000 UNIT/ML VIAL IVP PRN ×2 (14:43)
[2019-05-05] MEDS ORDERED: Heparin 25,000 UNIT/250 ML D5W 25,000 UNIT/250 ML IV.SOLN IVC SCH (14:45)
[2019-05-05] MEDS: Apixaban 5 MG TABLET PO SCH (20:27)
[2019-05-06 02:08] LABS: Basophils % 0.3 %; Eosinophils # 0.1 K/mcL (0.0-0.6); Eosinophils % 1.2 %; Hemoglobin 12.2 g/dL (12.9-16.9); Immature Granulocytes % 0.3 % (0-4); Lymphocytes # 1.5 K/mcL (0.6-4.6); Lymphocytes % 19.5 %; Mean Corpuscular HGB Conc 30.5 g/dL (31.6-35.5); Mean Corpuscular Hemoglobin 25.9 pg (28.0-33.3); Mean Corpuscular Volume 84.9 fL (83.0-100.0); Mean Platelet Volume 11.1 fL (9.4-12.4); Monocytes # 0.6 K/mcL (0.0-1.3); Monocytes % 7.6 %; Neutrophils # 5.5 K/mcL (1.6-8.9); Platelet Count 216 K/mcL (140-400); Red Blood Count 4.71 M/mcL (4.19-5.50); Red Cell Distribution Width 14.9 % (11.5-14.5); Segmented Neutrophils % 71.1 %; White Blood Count 7.7 K/mcL (4.3-11.1)
[2019-05-06 02:27] LABS: Alanine Aminotransferase 28 Units/L (7-52); Albumin 4.2 g/dL (3.5-5.7); Alkaline Phosphatase 76 Units/L (34-104); Aspartate Amino Transferase 27 Units/L (13-39); BUN/Creatinine Ratio 13 (6-26); Bilirubin,Total 0.2 mg/dL (0.3-1.0); Blood Urea Nitrogen 12 mg/dL (6-20); Carbon Dioxide 24 mEq/L (23-29); Chloride 108 mEq/L (98-107); Globulin 2.1 g/dL (2.4-3.5); Glucose 127 mg/dL (70-105); Magnesium 1.9 mg/dL (1.6-2.6); Osmolality,Calculated 291 (280-300); Phosphorous 3.4 mg/dL (2.7-4.5); Potassium 3.8 mEq/L (3.5-5.1); Sodium 140 mEq/L (136-145); Total Protein 6.3 g/dL (6.4-8.9); eGFR For African Americans > 60 (> 60); eGFR For Non-African Americans > 60 (> 60)
[2019-05-06 08:02] VITALS: BP 119/76
[2019-05-06] MEDS: Aspirin Enteric Coated 81 MG Tablet PO SCH (08:11)
[2019-05-06] MEDS: Apixaban 5 MG TABLET PO SCH (08:12)
== END 2019-05-06 14:51 | disposition home or self-care (01) | DRG 310 ==
LOC: ICNU 00:26 → EMEROOARM 00:26 → ICNU 02:40 → SUATTDRO 05:04 → 2NENU 18:58
PROVIDERS: ADMIT Family Medicine; ATTEND Internal Medicine

== ENCOUNTER 2020-01-29 14:03 | Observation (INO) ==
[2020-01-29] MEDS ORDERED: 0.9 % Sodium Chloride 1,000 ML IVC ONE (14:09)
[2020-01-29 15:03] LABS: Red Cell Distribution Width 17.9 % (11.5-14.5)
[2020-01-29 15:04] LABS: Hematocrit 29.4 % (37.5-50.1); Hemoglobin 7.6 g/dL (12.9-16.9); Mean Corpuscular HGB Conc 25.9 g/dL (31.6-35.5); Mean Corpuscular Hemoglobin 17.8 pg (28.0-33.3); Mean Corpuscular Volume 68.7 fL (83.0-100.0); Mean Platelet Volume 10.8 fL (9.4-12.4); Platelet Count 259 K/mcL (140-400); Red Blood Count 4.28 M/mcL (4.19-5.50); White Blood Count 5.1 K/mcL (4.3-11.1)
[2020-01-29 15:07] LABS: BUN/Creatinine Ratio 14 (6-26); Blood Urea Nitrogen 14 mg/dL (6-20); Calcium 9.4 mg/dL (8.6-10.3); Carbon Dioxide 24 mEq/L (23-29); Chloride 104 mEq/L (98-107); Glucose 141 mg/dL (70-105); Magnesium 1.8 mg/dL (1.6-2.6); Osmolality,Calculated 289 (280-300); Potassium 3.9 mEq/L (3.5-5.1); Sodium 138 mEq/L (136-145); Troponin I < 0.03 ng/mL (< 0.04); eGFR For African Americans > 60 (> 60); eGFR For Non-African Americans > 60 (> 60)
[2020-01-29 15:58] LABS: Anisocytosis 1+ (Not Present); Basophils # 0.1 K/mcL (0.0-0.2); Lymphocytes # 0.8 K/mcL (0.6-4.6); Monocytes # 0.2 K/mcL (0.0-1.3)
[2020-01-29 15:59] LABS: Poikilocytosis 1+ (Not Present); Polychromasia 1+ (Not Present)
[2020-01-29 16:00] LABS: Hypochromasia Present (Not Present); Microcytosis Present (Not Present); Platelet Estimate Normal (Normal)
[2020-01-29] MEDS ORDERED: Naloxone 0.4 MG/ML INJ IVP PRN (17:38)
[2020-01-29 18:22] LABS: Hematocrit 26.5 % (37.5-50.1); Hemoglobin 7.1 g/dL (12.9-16.9)
[2020-01-29] MEDS ORDERED: Perflutren Lipid Microsphere 1.3 ML in 0.9 % Sodium Chloride 8.7 ML IVP ONE (19:08)
[2020-01-30 00:16] LABS: Bilirubin,Urine Moderate (Negative); Blood,Urine Negative (Negative); Calcium Oxalate Crystals,Urine Present; Clarity,Urine Clear (Clear); Color,Urine Yellow (Yellow); Glucose,Urine (UA) Normal (Normal); Ketones,Urine Negative (Negative); Leukocyte Esterase,Urine Trace (Negative); Mucus,Urine Few per lpf (None-Few); Nitrite,Urine Negative (Negative); PH,Urine 6.5 pH Units (5.0-8.0); Protein,Urine Trace mg/dL (Neg-Trace); RBC,Urine 0-3 per hpf (0-3); Specific Gravity,Urine 1.026 (1.010-1.025); Squamous Epithelial Cell,Urine Few per hpf (None-Few); Urobilinogen,Urine Normal (Normal)
[2020-01-30 00:59] LABS: BUN/Creatinine Ratio 13 (6-26); Blood Urea Nitrogen 11 mg/dL (6-20); Calcium 8.4 mg/dL (8.6-10.3); Carbon Dioxide 23 mEq/L (23-29); Chloride 105 mEq/L (98-107); Glucose 98 mg/dL (70-105); Osmolality,Calculated 283 (280-300); Potassium 3.8 mEq/L (3.5-5.1); Sodium 137 mEq/L (136-145); eGFR For African Americans > 60 (> 60); eGFR For Non-African Americans > 60 (> 60)
[2020-01-30 01:09] LABS: Hematocrit 26.1 % (37.5-50.1); Hemoglobin 6.9 g/dL (12.9-16.9); Immature Granulocytes % 0.3 % (0-4); Lymphocytes # 1.3 K/mcL (0.6-4.6); Lymphocytes % 16.7 %; Mean Corpuscular HGB Conc 26.4 g/dL (31.6-35.5); Mean Corpuscular Hemoglobin 18.2 pg (28.0-33.3); Mean Corpuscular Volume 68.9 fL (83.0-100.0); Neutrophils # 5.7 K/mcL (1.6-8.9); Platelet Count 211 K/mcL (140-400); Red Blood Count 3.79 M/mcL (4.19-5.50); Red Cell Distribution Width 17.9 % (11.5-14.5); Segmented Neutrophils % 76.2 %; White Blood Count 7.5 K/mcL (4.3-11.1)
[2020-01-30 01:10] LABS: Basophils % 0.4 %; Eosinophils # 0.1 K/mcL (0.0-0.6); Eosinophils % 0.8 %; Monocytes # 0.4 K/mcL (0.0-1.3); Monocytes % 5.6 %
[2020-01-30 01:26] LABS: Anisocytosis 1+ (Not Present); Hypochromasia Present (Not Present); Microcytosis Present (Not Present); Platelet Estimate Normal (Normal)
[2020-01-30] MEDS ORDERED: TADALAFIL 5 MG PO PRN (07:38)
[2020-01-30] MEDS ORDERED: 0.9 % Sodium Chloride 500 ML ONE (08:12)
[2020-01-30] MEDS: Loratadine 10 MG TABLET PO SCH (08:53)
[2020-01-30] MEDS: Pantoprazole 40 MG VIAL IVP SCH ×2 (08:53→18:33)
[2020-01-30] MEDS ORDERED: ETODOLAC 400 MG PO SCH (09:00)
[2020-01-30] MEDS ORDERED: Perflutren Lipid Microsphere 1.3 ML in 0.9 % Sodium Chloride 8.7 ML IVP ONE (09:09)
[2020-01-30] MEDS ORDERED: *HR* Propofol 200 MG/20 ML VIAL IVP ONE (10:06)
[2020-01-30] MEDS ORDERED: *HR* Etomidate 40 MG/20 ML VIAL IVP ONE (10:06)
[2020-01-30] MEDS ORDERED: Lidocaine -MPF 2% 2 ML VIAL ONE (10:08)
[2020-01-30] MEDS ORDERED: flumazeniL 0.5 MG/5 ML VIAL IVP PRN (10:53)
[2020-01-30] MEDS ORDERED: Naloxone 0.4 MG/ML INJ IVP PRN (10:53)
[2020-01-30] MEDS ORDERED: Ondansetron 4 MG/2 ML VIAL IVP ONE (10:53)
[2020-01-30] MEDS ORDERED: *HR* FentaNYL (PF) 100 MCG/2 ML VIAL IVP PRN (10:53)
[2020-01-30] MEDS ORDERED: 0.9 % Sodium Chloride 250 ML ONE (13:16)
[2020-01-30 17:39] LABS: Hematocrit 31.3 % (37.5-50.1); Hemoglobin 8.5 g/dL (12.9-16.9)
[2020-01-31 04:19] LABS: Basophils % 0.5 %; Eosinophils # 0.1 K/mcL (0.0-0.6); Eosinophils % 1.3 %; Hematocrit 31.1 % (37.5-50.1); Hemoglobin 8.4 g/dL (12.9-16.9); Immature Granulocytes % 0.3 % (0-4); Lymphocytes # 1.6 K/mcL (0.6-4.6); Mean Corpuscular Hemoglobin 19.2 pg (28.0-33.3); Mean Corpuscular Volume 71.2 fL (83.0-100.0); Mean Platelet Volume 10.2 fL (9.4-12.4); Monocytes # 0.4 K/mcL (0.0-1.3); Monocytes % 6.9 %; Neutrophils # 4.1 K/mcL (1.6-8.9); Platelet Count 223 K/mcL (140-400); Red Blood Count 4.37 M/mcL (4.19-5.50); Red Cell Distribution Width 19.3 % (11.5-14.5); White Blood Count 6.2 K/mcL (4.3-11.1)
[2020-01-31 04:35] LABS: BUN/Creatinine Ratio 10 (6-26); Blood Urea Nitrogen 10 mg/dL (6-20); Calcium 8.9 mg/dL (8.6-10.3); Carbon Dioxide 26 mEq/L (23-29); Chloride 106 mEq/L (98-107); Glucose 114 mg/dL (70-105); Osmolality,Calculated 284 (280-300); Phosphorous 3.3 mg/dL (2.7-4.5); Sodium 137 mEq/L (136-145); eGFR For African Americans > 60 (> 60); eGFR For Non-African Americans > 60 (> 60)
[2020-01-31 04:50] LABS: Platelet Estimate Normal (Normal)
[2020-01-31 04:51] LABS: Anisocytosis 1+ (Not Present); Hypochromasia Present (Not Present)
[2020-01-31] MEDS: Pantoprazole 40 MG VIAL IVP SCH (05:19)
[2020-01-31 06:45] VITALS: BP 112/64
[2020-01-31] MEDS: Loratadine 10 MG TABLET PO SCH (10:38)
== END 2020-01-31 12:15 | disposition home or self-care (01) ==
LOC: EMEROOARM 14:03 → 3ANU 14:03
PROVIDERS: ADMIT Internal Medicine; ATTEND Internal Medicine